=== PATIENT | female | born 1995 | race Caucasian/White ===

== ENCOUNTER 2022-04-19 14:37 | Outpatient (CLI) | payer BC, SELFPAY ==
[2022-04-19 18:01] LABS: HIV 1/2/P24 Combo Screen* Negative (Negative)
[2022-04-19 18:42] LABS: Chlamydia DNA Amplified* NOT DETECTED (No Detected); GC DNA Amplified* NOT DETECTED (No Detected)
[2022-04-19 20:20] LABS: Hepatitis B Surface Antigen* Negative (Negative)
[2022-04-19 20:38] LABS: Hepatitis C Virus Antibody* Negative (Negative)
[2022-04-21 23:56] LABS: Rapid Plasma Reagin (RPR) Non Reactive (Non Reactive)
[2022-04-22 00:58] LABS: Rubella Antibody IgG 54.7 IU/mL
== END 2022-04-19 14:38 | disposition home or self-care (01) ==
PROVIDERS: Advanced Practice Midwife; Visit Provider Advanced Practice Midwife
DX: Z34.91 Encounter for supervision of normal pregnancy, unspecified, first trimester (principal); Z83.49 Family history of other endocrine, nutritional and metabolic diseases
CPT/HCPCS: 76817; 84443; 86592; 86703; 86762; 86803; 86850; 86900; 86901; 87086; 87340; 87491; 87591

== ENCOUNTER 2022-07-15 07:45 | Outpatient (CLI) | payer BC, SELFPAY ==
--- OUTSIDE RECORDS SUMMARY | 2022-07-15 07:47 | XMS_ITS | Encounter Summary ---
:1995 Author Organization [facility] Address [address] [place] [address] Care Team Providers Name Role Phone Unavailable Primary Care Provider Unavailable Reason for Visit Outpatient (Routine) - Closed Specialty Diagnoses / Procedures Referred By Contact Refer red To Contact Hematology Diagnoses Family History Of Diseases Of The Blood And Blood Forming Organs And Certain Disorders Involving The Immune Mechanism Mike Kumar M.D. [facility] Procedures Hematology - Coagulation/Hemophilia eConsult [address] [place] [address] [phone] Referral ID Status Reason Start Date Expiration Date Visits Requ ested Visits Authorized [id number] Closed 05/26/2022 05/26/2023 1 1 Encounter Details Date Type Department Care Team Description 05/30/2022 Internal E-Consult Division of Hernandez Leach Family History Von Willebrand Disease (Primary Dx); Hematology elena Coreas M.D., M.S. Family History Of Diseases Of The Blood And Blood Forming Organs And Certain Disorders Involving The Immune Mechanism [place], [place] [address] [facility] [address] [place] [phone] Social History Tobacco Use Types Packs/Day Years Used Date Smoking Tobacco: Never Assessed Sex Assigned at Date Recorded Not on file documented as of this encounter Consult Notes Hernandez Leach M.D., M.S. - 05/30/2022 7:00 AM CDT SUBJECTIVE Ordering Physician: Mike H Stacy, M.D. The patient was not personally interviewed or examined. The history and examination findings are based on the clinical documentation provided and/or discussed with a physician or provider who had personally interviewed and examined the patient. Time spent: Five minutes or more of medical review. Chief Complaint / Reason for Visit A consult was placed regarding Lay Clancy, a 26 y.o. female. Clinical question to be answered: patient reports family history of bleeding disorder. unclear of a specific diagnosis. patient is currently (~13 weeks) History of Present Illness Ms. Clancy is a 26-year-old female with family history of possible bleeding disorder. Per clinical note, she has ???no personal history of a bleeding disorder?? . Additional details regarding her hemostatic history, including whether she has a personal history of epistaxis, gum bleeding, hemoptysis, he matemesis, melena, hematochezia, hematuria, menorrhagia, easy bruisability are unavailable/ unknown.In addition, her experience with surgical interventions or invasive procedures like wisdom teeth extraction or tonsillectomy, etc. are unknown. Ms. Clancy's mother, who has Freda's thyroiditis and celiac disease, per clinical note, was diagnosed with von Willebrand disease in an outside facility, although her von Willebrand panel from 2002here at [facility] was apparently within the normal reference range. Her brother has history of frequent nose bleeds and has been diagnosed with court a bleeding disorder?? after he underwent tonsillectomy at age 6. Additional details are unavailable. She has a maternal uncle who also has nonspecific bleeding issues. OBJECTIVE ASSESSMENT / PLAN #1 Family history of bleeding disorder (? von Willebrand disease) It would be important to obtain Ms. Clancy's detailed personal and family hemostatic history using the ISTH bleeding assessment tool (BAT; https://bleedingscore.certe.nl/), and obtain additional details regarding her mother's and brother's outside coagulation laboratory parameters. If Ms. Clancy's ISTH BAT score is 6 or more, that would be suggestive of an underlying systemic bleeding disorder, and then obtaining a comprehensive bleeding diathesis workup would be appropriate. If, however, her ISTH BAT is low, especially if she has undergone a number of hemostatic challenges in the past, the likelihood of an underlying systemic bleeding disorder would be low, and therefore the yield of laboratory workup for evaluation for an underlying bleeding diathesis would be low. I should mention that if Ms. Clancy has not undergone any invasive procedures in her life, having a low ISTH BAT score cannot entirely rule out underlying bleeding disorder. If additional questions arise, or if [id number] consultation is desired, please refer Ms. Clancy to the Hematology-Coagulation Clinic. documented in this encounter Plan of Treatment Not on filedocumented as of this encounter Visit Diagnoses Diagnosis Family History Von Willebrand Disease - Primary Family History Of Diseases Of The Blood And Blood Forming Organs And Certain Disorders Involving The Immune Mechanism documented in this encounter
--- OUTSIDE RECORDS SUMMARY | 2022-07-15 07:47 | XMS_ITS | Clinical Summary ---
:1995 Author Organization [facility] [place] [address] Care Team Providers Name Role Phone Angela Carpenter Primary Care Provider Allergies Active Allergy Reactions Severity Noted Date Comments Adhesive Tape Rash 07/08/2008 Patient states It like melts my skin. Medications Medication Sig Dispensed Refills Start Date End Date Status letrozole (Femara) 2.5 Take 1 Tablet (2.5 5 Tablet 3 12/28/19 22 Active mg tabletIndications: mg) by mouth once Oligo-ovulation with daily. amenorrhea Active Problems Problem Noted Date Generalized anxiety disorder 02/06/2012 Immunizations Name Administration Dates Next Due COVID-19 vaccine (Moderna 100mcg/0.5mL) 02/05/2021, 01/08/20 21 PF, MDV DTP 08/30/1996 DTP-HIB 1995, 1995, 1995 DTaP 04/26/2001 HIB PRP-T (ActHIB,Hiberix) 04/28/1999 Hepatitis B, Unspecified 1995, 1995, 1995 Human Papilloma Virus Vaccine 07/30/2008, 04/14/2008, 2007 Inactivated Polio Vaccine 04/26/2001 Influenza A (H1N1), Inactivated (Age >=3 07/30/2008 Years) MMR 04/26/2001 Oral Polio Vaccine 10/26/1996, 1995, 1995 Tdap 04/14/2008 Family History Medical History Relation Name Comments Allergies Mother Other Mother Hadley 'marc dx Relation Name Status Comments Mother Social History Tobacco Use Types Packs/Day Years Used Date Former Smoker Cigarettes 0.25 Smokeless Tobacco: Never Used Tobacco Cessation: Ready to Quit: Yes; C ounseling Given: Yes Comments: 3 cgs/day Alcohol Use Standard Drinks/Week Comments Not Asked 0 (1 standard drink = 0.6 oz pure alcoho l) Sex Assigned at Date Recorded Not on file Obstetrics History Para Term AB IAB SAB Ectopic Multiple Living Live Births 0 0 0 0 0 0 0 0 0 0 0 Last Filed Vital Signs Vital Sign Reading Time Taken Comments Blood Pressure 112/64 12/27/2021 2:22 PM CDT Pulse 80 12/27/2021 2:22 PM CDT Temperature 37.2 ??C (98.9 ??F) 09/09/2021 10:16 AM 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 Respiratory Rate 16 12/27/2021 2:22 PM CDT Oxygen Saturation 98% 12/27/2021 2:22 PM CDT Inhaled Oxygen Concentration - - Weight 94.7 kg (208 lb 12.8 oz) 12/27/2021 2:22 PM CDT Height 158.8 cm (5' 2.5) 04/12/2021 1:08 PM CDT Body Mass Index 37.58 04/12/2021 1:08 PM CDT Plan of Treatment Health Maintenance Due Date Last Done Comments Hepatitis C screening for age 18-79 2013 Tetanus booster 04/14/2018 04/14/2008 COVID-19 vaccine series (3 - Moderna 03/05/2021 02/05/2021, 01/07/2021 risk series) BMI (ht and wt on same day) for age 0804/12/2022 04/12/2021, 03/12/2018, 18+ 09/07/2017 Depression screening for age 12+ 04/12/2022 04/12/2021, , 09/07/2017 Influenza for age 9-49 04/28/2022 07/30/2008 Pap test for age 21-65 04/12/2024 04/12/2021, 03/12/2018 Tdap Completed 04/14/2008 Results Not on filefrom Last 3 Months Insurance Payer Benefit Plan / Subscriber ID Effective Dates Phone Addre ss Type Group BLUE CROSS BLUE CROSS OF [id number] 2021-Present [address] [address] [place] [phone] Lay Clancy Personal/Family Self 1995 [address] (Home) [place] [id number] Care Teams Extension Service Advisor Relationship Specialty Start Date End Date Angela Carpenter PA PCP - General Physician Operations Support Manager 06/26/[address] [place] [address]
--- OUTSIDE RECORDS SUMMARY | 2022-07-15 07:47 | XMS_ITS | Clinical Summary ---
:1995 Author Organization [facility] Address [address] [place] [address] Care Team Providers Name Role Phone Unavailable Primary Care Provider Unavailable Source Comments Patient records contain information from all sites at [facility]. For routine questions regarding patient records, call [phone] during business hours, M-F 8:00 AM - 5:00 PM Central Time. Record requests for emergency care only can be directed to [phone] at any time.[facility] Encounters Date Type Specialty Care Team Description 05/30/2022 Internal E-Consult Hematology Hernandez Leach Family History Von Willebrand Disease (Primary Dx); Elizabeth Coreas, M.S. Family History Of Diseases Of The Blood And Blood Forming Organs And Certain Disorders Involving The Immune Mechanism 05/10/2022 Comprehensive Visit Maternal and Fernanda Cosby , Counseling Genetic Procreative Management (Primary Dx); Medicine Chacha L, Family History Of Diseases Of The Blood And Blood Forming Organs And Certain Disorders Involving The Immune Mechanism C.N.M. Verenice Hayward M.S., [facility] 04/22/2022 Community Orders Fernanda Cosby, Family History Of Chacha L, Diseases Of The C.N.M. Blood And Blood Forming Organs And Certain Disorde rs Involving The Immune Mechanis m (Primary Dx) from Last 3 Months Immunizations Name Administration Dates Next Due 4vHPV (discontinued) 07/30/2008, 04/14/2008, 11/27/2007 DTP 08/30/1996 DTP / Hib 1995, 1995, 1995 DTaP (Infanrix, Tripedia) 04/26/2001 HepB, Unspecified 1995, 1995, 1995 IPV 04/26/2001 Influenza Laiv (Nasal) (Discontinued) 07/30/2008 MMR 04/26/2001 OPV 10/26/1996, 1995, 1995 Tdap 04/14/2008 Social History Tobacco Use Types Packs/Day Years Used Date Smoking Tobacco: Never Assessed Sex Assigned at Date Recorded Not on file Plan of Treatment Health Maintenance Due Date Last Done Comments Cervical Cancer Screening 1995 HIV Screening 1995 Hepatitis C Screening 1995 DTaP,Tdap,and Td Vaccines 04/14/2018 04/14/2008, 04/26/2001 , (7 - Td or Tdap) 08/30/1996, Additional history exists COVID-19 Vaccine (3 - 04/02/2021 02/05/2021, 01/07/2021 Booster for Moderna series) Depression Screening 08/28/2021 (Annual PHQ-2) Influenza Vaccine (#1) 2022 07/30/2008 Hepatitis B Vaccines Completed 1995, 1995, 1995 Pneumococcal vaccine (0-64 Aged Out No lo nger eligible years) based on patient 's age to complete this topic Insurance Payer Benefit Plan / Subscriber ID Effective Dates Phone Addre ss Type Group [facility] [id number] 2021-[place] [phone] [address] [address] PPO BLUE SHIELD [address] [place] [address]
--- OUTSIDE RECORDS SUMMARY | 2022-07-15 07:48 | XMS_ITS | Encounter Summary ---
:1995 Author Organization [facility] Address [address] [place] [address] Care Team Providers Name Role Phone Unavailable Primary Care Provider Unavailable Encounter Details Date Type Department Care Team Description 05/22/[address] [facility]ED[facility] Zayra Arredondo ROpal Social History Tobacco Use Types Packs/Day Years Used Date Smoking Tobacco: Never Assessed Sex Assigned at Date Recorded Not on file documented as of this encounter Plan of Treatment Not on filedocumented as of this encounter Visit Diagnoses Not on filedocumented in this encounter
--- OUTSIDE RECORDS SUMMARY | 2022-07-15 07:48 | XMS_ITS | Encounter Summary ---
:1995 Author Organization [facility] Address [address] [place] [address] Care Team Providers Name Role Phone Unavailable Primary Care Provider Unavailable Encounter Details Date Type Department Care Team Description 08/11/2002 Hospital Encounter HX NO MAPPING Provider, Historical Social History Tobacco Use Types Packs/Day Years Used Date Smoking Tobacco: Never Assessed Sex Assigned at Date Recorded Not on file documented as of this encounter Plan of Treatment Not on filedocumented as of this encounter Visit Diagnoses Not on filedocumented in this encounter
--- OUTSIDE RECORDS SUMMARY | 2022-07-15 07:48 | XMS_ITS | Encounter Summary ---
:1995 Author Organization [facility] Address [address] [place] [address] Care Team Providers Name Role Phone Unavailable Primary Care Provider Unavailable Encounter Details Date Type Department Care Team Description 09/14/2006 Hospital Encounter HX [facility] Art Kinney O.D. Social History Tobacco Use Types Packs/Day Years Used Date Smoking Tobacco: Never Assessed Sex Assigned at Date Recorded Not on file documented as of this encounter Progress Notes Art Abreu O.D. - 09/14/2006 11:00 AM CST [id number] CLINIC ENCOUNTER SLIT LAMP EXAM: Shows angles to be open. Corneas and lenses - No apparent pathology. Media clear both eyes. Bulbar and palpebral conjunctivae clear. Lids clear both eyes. INTERNAL: C/D = 0.25, 0.25. A/V = 3/4. FUNDUS: No apparent pathology. Macular reflex plus, both eyes. IMPRESSION: Myopia. PLAN: Manifest refraction was given to wear as needed for distance. She may take off for reading. Recheck in on year, sooner if problems. Art Abreu O.D. KMManolo/arlene cc: Source: [facility] Document Id: [id number] Electronically signed by Conversion, [facility] Business Support Specialist [id number] at 01/30/2017 6:53 AM CDT Conversion, Historical Provider Ser - 09/14/2006 11:00 AM CST [id number] Pain Questionnaire: Is your visit today because of Pain? NO C.C - HERE FOR 1ST EYE EXAM-REFERRED BY DR.DECH HESS - STATES SHE HAS TROUBLE SEEING THE BOARD AT SCHOOL. NO TROUBLE READNG NEAR. HAS BEEN GETTING HEADACHES ON THE TEMPORAL SIDES OF HER EYES. STATES HER RIGHT EYE HAS 'WAVES' IN FRONT OF IT FOR THE PAST FEW MONTHS WHICH COMES AND GOES. NO ITCHING, BURNING, MATTERING OR EXCESSIVE TEARING OR DRYNESS OFTHE EYES. HER MOTHER IS ALONG FOR VISIT.Karyn Mensah 09/14/2006 REVIEW OF SYSTEMS: Skin: negative. Eyes: negative. Ears/Nose/Throat: negative. Respiratory: negative. Cardiovascular: negative. Gastrointestinal: negative. Genitourinary: negative. Musculoskeletal: negative. Neurologic: HEADACHES. Psychiatric: negative. Hematologic/Lymphatic/Immunologic: negative. Endocrine: negative. MEDICATIONS: Current outpatient prescriptions Medication Sig NO ACTIVE MEDICATIONS . FAMILY HISTORY: No family history on file Source[facility] Document Id: [id number] Art Abreu O.D. - 09/14/2006 11:00 AM CST [id number] Lay Faye is here for an exam. ON EXAM: Near point convergence: to nose. Mobility: FROM. Pupils: PERRLA, MG and no afferent defect. Visual Field: Confrontation, WNL OD & OS. Induced Phorias: Distance: 2, exo. Near:8, exo. Vertical Phoria:ortho. Source: [facility] Document Id: [id number] Electronically signed by Conversion, [facility] Business Support Specialist [id number] at 01/30/2017 6:53 AM CDT documented in this encounter Plan of Treatment Not on filedocumented as of this encounter Visit Diagnoses Not on filedocumented in this encounter
--- OUTSIDE RECORDS SUMMARY | 2022-07-15 07:48 | XMS_ITS | Encounter Summary ---
:1995 Author Organization [facility] Address [address] [place] [address] Care Team Providers Name Role Phone Unavailable Primary Care Provider Unavailable Encounter Details Date Type Department Care Team Description 11/27/2007 Hospital Encounter HX [facility] PEDIATRIC Ra luz Burkett P.A.-C. [address] [place] [phone] (Wo rk) Social History Tobacco Use Types Packs/Day Years Used Date Smoking Tobacco: Never Assessed Sex Assigned at Date Recorded Not on file documented as of this encounter Progress Notes Rocio Burkett P.A.-C. - 11/27/2007 3:50 PM CDT [id number] SUBJECTIVE: Lay is a 12 year old female brought in by her mom today for left forearm pain that began 2 days ago after no apparent injury. She is unsure when her symptoms began, or what she was doing. They do notkeep her awake at night. She has not taken any medications for this. No other pain complaints of other extremities or joints. She is otherwise feeling well without fever or chills. OBJECTIVE: Weight 112 lbs 6.4 oz (51.0 kg). Lay is alert and cooperative. Left arm appears normal without deviation, discoloration, swelling. Good capillary refill in the nailbeds and radially and ulnar pulse full. She is nontender to any palpation. She has full ROM actively of elbow, wrist, and shoulder. Xray negative ASSESSMENT: Left forearm pain of unknown etiology PLAN: Supportive and symptomatic care only at this time. Continue to observe only and recheck if no improvement over next month. Source: [facility] RWMCHXTRANSXRTFSYS Document Id: [id number] Electronically signed by Conversion, [facility] Simplex Printer Installer [id number] at 01/30/2017 1:46 AM CDT documented in this encounter Plan of Treatment Not on filedocumented as of this encounter Visit Diagnoses Not on filedocumented in this encounter
--- OUTSIDE RECORDS SUMMARY | 2022-07-15 07:48 | XMS_ITS | Encounter Summary ---
:1995 Author Organization [facility] Address [address] [place] [address] Care Team Providers Name Role Phone Unavailable Primary Care Provider Unavailable Encounter Details Date Type Department Care Team Description 11/17/2008 Hospital Encounter HX [facility] PEDIATR[facility] Marvin Reid M.D. [address], [place] [address] (Wo rk) Social History Tobacco Use Types Packs/Day Years Used Date Smoking Tobacco: Never Assessed Sex Assigned at Date Recorded Not on file documented as of this encounter Progress Notes Marvin Reid M.D. - 11/17/2008 3:10 PM CDT [id number] Please scan [facility] sports PE form here. Source: [facility] UN[facility]XTRANSXRTFS[facility] Document Id: [id number] documented in this encounter Plan of Treatment Not on filedocumented as of this encounter Visit Diagnoses Not on filedocumented in this encounter
--- OUTSIDE RECORDS SUMMARY | 2022-07-15 07:48 | XMS_ITS | Encounter Summary ---
:1995 Author Organization [facility] Address [address] [place] [address] Care Team Providers Name Role Phone Unavailable Primary Care Provider Unavailable Encounter Details Date Type Department Care Team Description 09/07/2009 Hospital Encounter HX [facility] PED[facility] Dech, Marvin Elizabeth M.D. [address] [place], [place] [address] (Wo rk) Social History Tobacco Use Types Packs/Day Years Used Date Smoking Tobacco: Never Assessed Sex Assigned at Date Recorded Not on file documented as of this encounter Progress Notes Ayla Terry R.N. - 09/07/2009 10:50 AM CST [id number] Vision Screening Both Eyes: 20/50 Right Eye: 20/50 Left Eye: 20/50 Corrected: No Patient: Lay Faye Tested by: Ayla Terry Date: 09/07/2009 The Malaysian responses were used in this documentation with this patient. Yes = Response No = No response n/a = not applicable or not done Testing done on the Right ear - 20db HL Right Ear: 1000hz - yes 2000hz - yes 4000hz - yes 500hz - yes 25db HL Right Ear: 1000hz - n/a 2000hz - n/a 4000hz - n/a 500hz - n/a 40db HL Right Ear: 1000hz - n/a 2000hz - n/a 4000hz - n/a 500hz - n/a Testing done on the Left ear - 20db HL Left Ear: 1000hz - yes 2000hz - yes 4000hz - yes 500hz - yes 25db Left Ear: 1000hz - na 2000hz - n/a 4000hz - n/a 500hz - n/a 40db Left Ear: 1000hz - n/a 2000hz - n/a 4000hz - n/a 500hz - n/a Source: [facility] Document Id: [id number] Electronically signed by Conversion, [facility] Decorative Greens Cutter [id number] at 01/29/2017 7:10 AM CDT Marvin Reid M.D. - 09/07/2009 10:50 AM CST [id number] Please scan [facility] sports PE form here. Source: [facility] Document Id: [id number] Electronically signed by Conversion, [facility] Decorative Greens Cutter [id number] at 01/29/2017 7:10 AM CDT documented in this encounter Plan of Treatment Not on filedocumented as of this encounter Visit Diagnoses Not on filedocumented in this encounter
--- OUTSIDE RECORDS SUMMARY | 2022-07-15 07:48 | XMS_ITS | Encounter Summary ---
:1995 Author Organization [facility] Address [address] [place] [address] Care Team Providers Name Role Phone Unavailable Primary Care Provider Unavailable Encounter Details Date Type Department Care Team Description 04/17/2001 Hospital Encounter HX [facility] P[facility] Dech, Marvin Elizabeth M.D. [address] [place], [place] [address] (Wo rk) Social History Tobacco Use Types Packs/Day Years Used Date Smoking Tobacco: Never Assessed Sex Assigned at Date Recorded Not on file documented as of this encounter Progress Notes Conversion, Historical Provider Ser - 04/17/2001 11:10 AM CDT [id number] Lay Faye is a 5 year old male here for 5 year well child exam. He will be attending [employer] next fall.Brought in by mother. HISTORYCurrent Concerns: Mom has concerns r.e. speech. Is thuy ewhat inarticulate. This has been previously identified and she is receiving services through the [facility]. Mom also notes that she toe-walks alot. She was eval'ed at [facility] when she was 2, they felt at that time she would grow out of it. It has been improving.Diet: appropriate diet, do esn't like milk.Water Source: city water.Elimination: normal bowel movements, normal urination and potty trained.Sleep: sleeps through the nightDaycare: NoNoteworthy social stresses: noneHistory M odules Reviewed: YesThere is no problem list on file for this patient.DEVELOPMENTAL SCREEN: Keenan rivera Concerns about Development:[facility] screening (hearing/vision):Yes - passed both.SOCIAL Board games/takes turns:YesDresses independently: YesSeparates from parent: Yes FINE MOTORCopi es cross: YesCopies square: Yes 6 part person drawing: YesGROSS MOTORBalance 1 foot 5 sec: YesHop on each foot(5x): YesLANGUAGEUnderstandable speech: No, somewhat inartic ulate but appropriate vocabularyCount to 5/how many: YesColors: YesPHYSICAL EX AM: BP 88/50 Ht 3' 7.75 (1.11m) Wt 45 lbs (20.41 kg)Growth charts reviewed.General: Alert, i nteractive and appropriate, cooperative and no distressHead: NORMALEyes: NORMAL EOM (cover/uncover): NORMALEars: NORMALNose: NORMALMouth: ABNORMAL: Dental cariesNeck: NORMALResp: NORMALHeart: NORMALAbdomen: NORMALGenitalia: NORMAL femaleMusculoskeletal: NORMAL Gait: NORMALSkin: NORMALNeurological: NORMALLAB: No results found for this basename: HG B:1,URINEBLOOD:1,URINEPROTEIN:1,URINEG]EDUCATION/DISCUSSED: Bike helmet safetyDental visit. Risk Assessment Reviewed and Discussed:NoASSESSMENT/PLAN:Normal growth and development at 5 year old.Handout on age appropriate development/safety given.Immunizations reviewed, any previous advers e reactions discussed, and appropriate immunizations ordered after discussion. Mom is getting immuni zation records from [facility]. UA ordered if never done previously.Kindergarten school form comp leted.Return in 2-3 years.Continue to work with speech therapist at school.Normal lower extremity anatomy and range of motion. Toe-walking may be habitual. Consider PT referral for stretching exerc ises if persistent or problematic. Source: [facility] RWHXTRANSXSYS Document Id: [id number] documented in this encounter Plan of Treatment Not on filedocumented as of this encounter Visit Diagnoses Not on filedocumented in this encounter
--- OUTSIDE RECORDS SUMMARY | 2022-07-15 07:48 | XMS_ITS | Encounter Summary ---
:1995 Author Organization [facility] Address [address] [place] [address] Care Team Providers Name Role Phone Unavailable Primary Care Provider Unavailable Encounter Details Date Type Department Care Team Description 09/27/2006 Hospital Encounter HX [facility] Jennifer Hein R.N. [address] [place] [address] Social History Tobacco Use Types Packs/Day Years Used Date Smoking Tobacco: Never Assessed Sex Assigned at Date Recorded Not on file documented as of this encounter Miscellaneous Notes Telephone Encounter - Ann Hein R.N. - 09/27/2006 12:00 AM [employer] [id number] TELEPHONE TRIAGE ENCOUNTER FORM Date: 09/27/2006 PCP: Marvin Reid MD Patient Name: Lay Faye Gender: female : 1995 Age: [age] year old Time: 10:02 AM Phone Numbers: [phone] (home) Pharmacy: [facility] ([facility]) - [facility] ASSESSMENT Presenting Problem: bladder infection Subjective/objective: Has been having urinary frequency and pain since last evening. This morning isrunning low grade temp and now c/o stomach and back pain. Onset: sudden Duration: 1 days Associated Sx: low grade fevers. C/o stomach and back pain Problem list reviewed: YES Recent History: No. Recent Illness: No Allergies verified: YES Precipitated by: No Med list reviewed: YES Alleviated by: N/A Immunosuppressed:NO Conclusion / Primary Problem: UTI Protocol(s) Consulted: Per Nursing Judgement PLAN / INTERVENTION Disposition: Referred to clinic - within 24 hours Appointment today with PCP @ 1330 Caller verbalizes understanding of disposition? YES Caller agrees to plan? Yes EVALUATION / FOLLOW-UP Source[facility] Document Id: [id number] documented in this encounter Plan of Treatment Not on filedocumented as of this encounter Visit Diagnoses Not on filedocumented in this encounter
--- OUTSIDE RECORDS SUMMARY | 2022-07-15 07:48 | XMS_ITS | Encounter Summary ---
:1995 Author Organization [facility] Address [address] [place] [address] Care Team Providers Name Role Phone Unavailable Primary Care Provider Unavailable Reason for Referral Outpatient (Routine) - Closed Specialty Diagnoses / Procedures Referred By Contact Refer red To Contact Obstetrics and Diagnoses Family History Of Diseases Of The Blood And Blood Forming Organs And Certain Disorders Involving The Immune Mechanism Maddy Vasquez [facility] Gynecology Chacha Desai C.N.M. [address] [place] [address] Referral ID Status Reason Start Date Expiration Date Visits Requ ested Visits Authorized [id number] Closed 04/22/2022 04/22/2023 1 1 Encounter Details Date Type Department Care Team Description 04/22/2022 [facility] Fernanda Cosby, [facility] History Of AND CLINICS Chacha Desai C.N.M. Diseases Of The [address] [place] [address] [address] [facility] [place] [address] [place], [place] Forming Organs And [phone] Certain Disorders [phone] Involving The I mmune (Work) Mechanism (Primary [phone] Dx) (Fax) Social History Tobacco Use Types Packs/Day Years Used Date Smoking Tobacco: Never Assessed Sex Assigned at Date Recorded Not on file documented as of this encounter Plan of Treatment Scheduled Referrals Name Type Priority Associated Order Schedule Diagnoses Obstetrics Referral Outpatient Referral Routine Family History Of Expected: Diseases Of The 04/22/2022 Blood And Blood (Approximate ), Forming Organs And Expires: Certain Disorders 07/23/2023 Involving The Immune Mechanism documented as of this encounter Visit Diagnoses Diagnosis Family History Of Diseases Of The Blood And Blood Forming Organs And Certain Disorders Involving The Immune Mechanism - Primary documented in this encounter
--- OUTSIDE RECORDS SUMMARY | 2022-07-15 07:48 | XMS_ITS | Encounter Summary ---
:1995 Author Organization [facility] Address [address] [place] [address] Care Team Providers Name Role Phone Unavailable Primary Care Provider Unavailable Encounter Details Date Type Department Care Team Description 06/20/2003 Hospital Encounter HX [facility] PEDIATRIC Dech, Marvin Elizabeth M.D. [address] [place], [place] [address] (Wo rk) Social History Tobacco Use Types Packs/Day Years Used Date Smoking Tobacco: Never Assessed Sex Assigned at Date Recorded Not on file documented as of this encounter Progress Notes Conversion, Historical Provider Ser - 06/20/2003 8:50 AM CDT [id number] Lay Faye is a 8 year old female here for well child exam.Brought in by mother. Lives with fe membreno.HISTORYHealth Concerns: Has a wart on her right hand they would like removed.Her younger bro ther is being worked up for a possible bleeding disorder. Mom notes that Lay has always bruised ea sily. No mucosal bleeding, joint swelling.There is no problem list on file for this patient.Revie w of patient's past medical history indicates: OTITIS MEDIA NOS Comment: history ofCurrent prescriptions:NO ACTIVE MEDICATIONS .Review of the patient 's allergies finds: Adhesive Tape rash,skin peels off.N oteworthy social stressors: nonePHYSICAL EXAM BP 90/52 Ht 4' .75 (1.24m) Wt 59 lbs 8 oz (27. 0kg)VISUAL ACUITYR 20/25; L 20/25; Glasses: NoGeneral: Alert, interactive and appropriate, coope rative and no distressHead: Head normalEyes: Conj not injected. Bilat red reflex present. EOMs in tact, w/o strabismus. PERLVISUAL ACUITY - R: Normal; L: Normal Both: NormalEars: Ears normalHEARIN G SCREEN - R: Normal; L: NormalNose: Nares normalMouth: Oropharynx normalNeck: Supple without mass es. Thyroid normalResp: Breathing not labored. Chest clear to auscultation.Heart: Reg rate and rhyt hm. NL S1 S2. No murmurs. Fem pulses full and symmAbdomen: Soft, nontender. Normal bow el sounds. No hepatosplenomegaly or abnormal massesLymph: No lymphadenopathy.Genitalia: .sex genit jose manuel Normal external female genitaliaMusculoskeletal: Spine straight w/o scoliosis. NL and symmetric strength and tone. Hips NL.Skin: No rashes, induration, or cyanosis.Neurological: Appropriate for ageImmunization History: DPT 08/30/1996 DTaP 04/26/2001 Hepatitis B [birth year] IPV 04/26/2001 MMR 04/26/2001 OPV 1995 1995 10/26/1996 Te tramune (DtP/HIB) 1995 [birth year] Immunizations up to date: YesIf no, list g iven.CBC, INR, PTT normalPLAN:1. Education/Discussed: Food groups SnacksSeatbelt safetyGuns Dental visitSunscreen.2. RTC 10 years of age3. Dental referral (CAT) 4. No evidence of a bleedi ng disorder. Source: [facility] Document Id: [id number] documented in this encounter Plan of Treatment Not on filedocumented as of this encounter Visit Diagnoses Not on filedocumented in this encounter
--- OUTSIDE RECORDS SUMMARY | 2022-07-15 07:48 | XMS_ITS | Encounter Summary ---
:1995 Author Organization [facility] Address [address] [place] [address] Care Team Providers Name Role Phone Unavailable Primary Care Provider Unavailable Encounter Details Date Type Department Care Team Description 07/12/2006 Hospital Encounter HX [facility] PEDIATRIC Marvin Reid M.D. [address] [place], [place] [address] (Wo rk) Social History Tobacco Use Types Packs/Day Years Used Date Smoking Tobacco: Never Assessed Sex Assigned at Date Recorded Not on file documented as of this encounter Progress Notes Conversion, Historical Provider Ser - 07/12/2006 3:10 PM CST [id number] This child qualifies for vaccination through the [place] program because she (choose only one box in descending order):is enrolled in a [facility] Program: - [place] Medical Assitance (MA) Source: [facility] Document Id: [id number] Marvin Reid M.D. - 07/12/2006 3:10 PM CST [id number] Lay Faye is a 11 year old female here for well child exam. Brought in by mother. Lives with mother. HISTORY Health Concerns: Fever, malaise, congestion for 2 days. There is no problem list on file for this patient. Past Medical History Diagnosis Date OTITIS MEDIA NOS history of Current outpatient prescriptions Medication Sig AMOXICILLIN 400 MG/5ML OR SUSR 10cc PO BID x 10 days NO ACTIVE MEDICATIONS . Allergies Allergen Reactions Adhesive Tape rash,skin peels off. Noteworthy social stressors: none PHYSICAL EXAM CAT Physical: Yes BP 115/68 Pulse 112 Temp (Src) 100.3 (Tympanic) Ht 4' 7 (1.40m) Wt 100 lbs 4.8 oz (45.5kg) VISUAL ACUITY R 20/40; L 20/50; Glasses: No General: Alert, interactive and appropriate, cooperative and no distress Head: Head normal Eyes: Conj not injected. Bilat red reflex present. EOMs intact, w/o strabismus. [facility] VISUAL ACUITY - R: Normal; L: Normal Both: Normal Ears: R TM - erythematous and bulging, L TM - normal HEARING SCREEN - R: Abnormal - some misses.; L: Normal Nose: Nares normal Mouth: Oropharynx normal Neck: Supple without masses. Thyroid normal Resp: Breathing not labored. Chest clear to auscultation. Heart: Reg rate and rhythm. NL S1 & S2. No murmurs. Fem pulses full and symm Abdomen: Soft, nontender. Normal bowel sounds. No hepatosplenomegaly or abnormal masses Lymph: No lymphadenopathy. Genitalia: deferred Musculoskeletal: Spine straight w/o scoliosis. NL and symmetric strength and tone. Hips NL. Skin: No rashes, induration, or cyanosis. Neurological: Appropriate for age Immunization History Name Date(s) Administered DPT 08/30/1996 DTAP (<7y) 04/26/2001 Hepatitis B 1995, 1995, 1995 IPV 04/26/2001 MMR 04/26/2001 OPV 1995, 1995, 10/26/1996 Tetramune (DtP/HIB) 1995, 1995, 1995 Immunizations up to date: Yes If no, list given. PLAN: 1. Education/Discussed: Food groups Fire safety/matches Seatbelt safety Dental visit Sunscreen 2. RTC 13 years of age 3. Dental referral (CAT) 4 ROM rx amox per orders. Source: [facility] RWMCHXTRANSXRTFSYS Document Id: [id number] Electronically signed by Conversion, [facility] Web Merchant [id number] at 01/30/2017 4:20 PM CDT documented in this encounter Plan of Treatment Not on filedocumented as of this encounter Visit Diagnoses Not on filedocumented in this encounter
--- OUTSIDE RECORDS SUMMARY | 2022-07-15 07:48 | XMS_ITS | Encounter Summary ---
:1995 Author Organization [facility] Address [address] [place] [address] Care Team Providers Name Role Phone Unavailable Primary Care Provider Unavailable Encounter Details Date Type Department Care Team Description 10/30/2003 Hospital Encounter HX NO MAPPING Provider, Historical Social History Tobacco Use Types Packs/Day Years Used Date Smoking Tobacco: Never Assessed Sex Assigned at Date Recorded Not on file documented as of this encounter Progress Notes Conversion, Historical Provider Ser - 10/30/2003 6:15 PM CST [id number] SUBJECTIVE:Lay is an 8-year-old female who presents with mother complaining of sore throat x 1 day . Positive headache, positive low-grade fever. Positive vomiting once today. OBJECTIVE:General: We ll-developed, well-nourished child in no acute distress.Ears: TM intact and normal bilaterally.Nose : Normal.Throat: Mucosa with moderate erythema. Tonsillar hypertrophy 1+ bilaterally. White exudates present. Neck: Supple. No lymphadenopathy. CV: S1, S2, RRR, no murmurs, rubs, or gallops. Respira tory Exam: Clear to auscultation bilaterally. Normal respiratory effort. LABORATORY/X-RAY RESULTS: Rapid strep test is positive.ASSESSMENT:Strep throat.PLAN:Treatment with penicillin VK, 250 mg /5 ml suspension 1 tsp PO three times a day x 10 days. Stay well hydrated. 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 Return for office visit if symptoms worsen or moira l to improve. Andria Salgado PA-C/carmellaD: 10/30/2003T: 10/31/2003 Source: [facility] Document Id: [id number] documented in this encounter Plan of Treatment Not on filedocumented as of this encounter Visit Diagnoses Not on filedocumented in this encounter
--- OUTSIDE RECORDS SUMMARY | 2022-07-15 07:48 | XMS_ITS | Encounter Summary ---
:1995 Author Organization [facility] Address [address] [place] [address] Care Team Providers Name Role Phone Unavailable Primary Care Provider Unavailable Encounter Details Date Type Department Care Team Description 11/12/2002 Hospital Encounter HX [facility]EDIATRIC Dech, Marvin Elizabeth M.D. [address] [place], [place] [address] (Wo rk) Social History Tobacco Use Types Packs/Day Years Used Date Smoking Tobacco: Never Assessed Sex Assigned at Date Recorded Not on file documented as of this encounter Progress Notes Conversion, Historical Provider Ser - 11/12/2002 10:50 AM CST [id number] Pt is a 7 year old female brought by mother who presents with concerns about possible conjunctivitis. There has been 5days of bilateral conjunctival injection and clear discharge. There is no pain, ph otophobia, blurriness or diplopia. Additional symptoms include none. Three sibs with similar sx. M om has been using polytrim without improvement.Obj: Temp 97.1 Temp Src: Tympanic Wt 53 lbs 9 o z (24.296 kg)Gen: WDWN, alert, NADHead: Normocephalic, atraumaticEyes: EOMI, PERRLA, bilateral conjunctival injection with clear discharge notedEars: TM's clear bilaterallyNose: normalMouth: MMM without lesionsPharynx: Not inflamed, no exudateNeck: suppleLungs: clearHeart: Regular ra te and rhythm without murmers.Impression: Acute bilateral conjunctivitisPlan: Sulfacetamide oint ment to affected eye(s) TID until clear.Frequent handwashing, try not to touch eyes.Return if sympt oms worsen or persist beyond 7 days. Source: [facility] RWHXTRANSXSYS Document Id: [id number] documented in this encounter Plan of Treatment Not on filedocumented as of this encounter Visit Diagnoses Not on filedocumented in this encounter
--- OUTSIDE RECORDS SUMMARY | 2022-07-15 07:48 | XMS_ITS | Encounter Summary ---
:1995 Author Organization [facility] Address [address] [place] [address] Care Team Providers Name Role Phone Unavailable Primary Care Provider Unavailable Encounter Details Date Type Department Care Team Description 12/23/2004 Hospital Encounter [facility] Marvin Reid M.D. [address] [place], [place] [address] (Wo rk) Social History Tobacco Use Types Packs/Day Years Used Date Smoking Tobacco: Never Assessed Sex Assigned at Date Recorded Not on file documented as of this encounter Progress Notes Marvin Reid M.D. - 12/23/2004 10:30 AM CDT [id number] SUBJECTIVE: Lay Faye is an 9 year old female who presents for evaluation and treatment of sore throat. Symptoms include congestion, sore throat and fever. Onset 6 days, stable since that time. Known Strep exposure: none. 1. NO ACTIVE MEDICATIONS Route: Sig:. Dispense: 0 Refill: 0 Adhesive Tape Comment: rash,skin peels off. Tobacco Use: Not on file Comment: no second hand smoke Alcohol Use: Not on file OBJECTIVE: Temp (Src) 98.7 (Tympanic) Wt 66 lbs 6.0 oz (30.1kg) General appearance: healthy, alert, no distress and cooperative Ears: R TM - normal: no effusions, no erythema, and normal landmarks, L TM - normal: no effusions, no erythema, and normal landmarks Nose: mild audible congestion Oropharynx: mild erythema Neck: normal, supple and moderate anterior cervical adenopathy bilaterally Lungs: normal and clear to auscultation Heart: regular rate and rhythm and no murmurs, clicks, or gallops ASSESSMENT: Acute pharyngitis - r/o Strep RSS negative Dx: Non-strep pharyngitis Rx: 1) Symptomatic treatment with fluids, vaporizer, acetaminophen. 2) Recheck as needed for persistence, worsening, appearance of new symptoms. 3) Culture pending. PLAN: Discussed possible etiologies of symptoms and need for antibiotic treatment if Strep found. Source: [facility] RWMCHXTRANSXRTFSYS Document Id: [id number] Electronically signed by Conversion, [facility] Critical Care Clinical Nurse Specialist [id number] at 01/30/2017 9:02 PM CDT documented in this encounter Plan of Treatment Not on filedocumented as of this encounter Visit Diagnoses Not on filedocumented in this encounter
--- OUTSIDE RECORDS SUMMARY | 2022-07-15 07:48 | XMS_ITS | Encounter Summary ---
:1995 Author Organization [facility] Address [address] [place] [address] Care Team Providers Name Role Phone Unavailable Primary Care Provider Unavailable Encounter Details Date Type Department Care Team Description 04/17/2001 Hospital Encounter HX [facility] PED[facility] Major De Luna ea, L.P.N. [address] [place] [address] Social History Tobacco Use Types Packs/Day Years Used Date Smoking Tobacco: Never Assessed Sex Assigned at Date Recorded Not on file documented as of this encounter Plan of Treatment Not on filedocumented as of this encounter Visit Diagnoses Not on filedocumented in this encounter
--- OUTSIDE RECORDS SUMMARY | 2022-07-15 07:48 | XMS_ITS | Encounter Summary ---
:1995 Author Organization [facility] Address [address] [place] [address] Care Team Providers Name Role Phone Unavailable Primary Care Provider Unavailable Encounter Details Date Type Department Care Team Description 12/23/2020 Orders Only [facility] Sa mike Le M.D. [address] [place] [phone] (Wo rk) Social History Tobacco Use Types Packs/Day Years Used Date Smoking Tobacco: Never Assessed Sex Assigned at Date Recorded Not on file documented as of this encounter Plan of Treatment Not on filedocumented as of this encounter Visit Diagnoses Not on filedocumented in this encounter
--- OUTSIDE RECORDS SUMMARY | 2022-07-15 07:48 | XMS_ITS | Encounter Summary ---
:1995 Author Organization [facility] Address [address] [place] [address] Care Team Providers Name Role Phone Unavailable Primary Care Provider Unavailable Encounter Details Date Type Department Care Team Description 09/27/2006 Hospital Encounter [facility] Marvin Reid M.D. [address] [place], [place] [address] (Wo rk) Social History Tobacco Use Types Packs/Day Years Used Date Smoking Tobacco: Never Assessed Sex Assigned at Date Recorded Not on file documented as of this encounter Progress Notes Marvin Reid M.D. - 09/27/2006 1:30 PM CST [id number] CLINIC ENCOUNTER SUBJECTIVE: Lay is an 11-year-old who was well until yesterday when she began to develop dysuria, frequency and urgency. She has also had some lower abdominal pain. She has been afebrile. She has no history of urinary tract infections. OBJECTIVE: She is well developed, well nourished, alert, in no acute distress. HEENT EXAM is not performed. Neck is supple. Lungs are clear. She has a normal S1, S2 with a regular rate and rhythm, no murmurs. There is no CVA tenderness. She has normal bowel sounds. Abdomen is soft, nontender, nondistended, without hepatosplenomegaly or masses. Urinalysis with specific gravity greater than 1.030, pH 7.5, greater than 300 protein. Nitrate and leukocyte esterase are negative. There are 0 to 2 WBCs per high-powered field, 5 to 10 RBCs per high-powered field. Urine culture is pending. IMPRESSION: Dysuria, rule out urinary tract infection. PLAN: Will treat with Bactrim per orders while urine culture is pending. Push fluids. Symptomatic cares. Follow up p.r.n. I will notify mom once urine culture results are done. Elizabeth Roldan/arlene cc: Source: [facility] Document Id: [id number] Electronically signed by Conversion, [facility] Proced Tech [id number] at 01/30/2017 6:53 AM CDT Marvin Reid M.D. - 09/27/2006 1:30 PM CST [id number] This office note has been dictated. Source: [facility] Document Id: [id number] Electronically signed by Conversion, [facility] Proced Tech [id number] at 01/30/2017 6:53 AM CDT documented in this encounter Plan of Treatment Not on filedocumented as of this encounter Visit Diagnoses Not on filedocumented in this encounter
--- OUTSIDE RECORDS SUMMARY | 2022-07-15 07:48 | XMS_ITS | Encounter Summary ---
:1995 Author Organization [facility] Address [address] [place] [address] Care Team Providers Name Role Phone Unavailable Primary Care Provider Unavailable Encounter Details Date Type Department Care Team Description 07/25/2008 Hospital Encounter HX [facility] PEDIAT[facility] Dech, Marvin Elizabeth M.D. [address] [place], [place] [address] (Wo rk) Social History Tobacco Use Types Packs/Day Years Used Date Smoking Tobacco: Never Assessed Sex Assigned at Date Recorded Not on file documented as of this encounter Miscellaneous Notes Miscellaneous - Becka Ortiz R.N. - 07/25/2008 12:00 AM CST [id number] July 25, 2008 Lay Faye [address] [place] [phone] Dear Ms. Faye, It has come to our attention while reviewing your records, that you are in need of completing your HPV (Human Papillomavirus ) immunization series. The HPV vaccine is given as a 3 - dose series. After receiving your 1st dose the 2nd dose is given - 2 months after 1st dose, 3rd dose - 6 months after the 1 st dose. You are missing your 3rd and final HPV immunization. Please call us at [phone] to make a Nurse Only Visit appointment and we can assist you with completing this series. This is important for your continued health. The [facility] can schedule your visit between 8:30 AM and 4 PM Monday thru Monday. Thank you. Primary Care Department Source: [facility] Document Id: [id number] Electronically signed by Conversion, [facility] Senior Architect/Design Manager [id number] at 01/30/2017 1:00 AM CDT documented in this encounter Plan of Treatment Not on filedocumented as of this encounter Visit Diagnoses Not on filedocumented in this encounter
--- OUTSIDE RECORDS SUMMARY | 2022-07-15 07:48 | XMS_ITS | Encounter Summary ---
:1995 Author Organization [facility] Address [address] [place] [address] Care Team Providers Name Role Phone Unavailable Primary Care Provider Unavailable Encounter Details Date Type Department Care Team Description 08/11/2002 Hospital Encounter HX NO MAPPING Raheel Rosado M.D. [address] [place], [place] [phone] (Wo rk) Social History Tobacco Use Types Packs/Day Years Used Date Smoking Tobacco: Never Assessed Sex Assigned at Date Recorded Not on file documented as of this encounter Plan of Treatment Not on filedocumented as of this encounter Visit Diagnoses Not on filedocumented in this encounter
--- OUTSIDE RECORDS SUMMARY | 2022-07-15 07:48 | XMS_ITS | Encounter Summary ---
:1995 Author Organization [facility] Address [address] [place] [address] Care Team Providers Name Role Phone Unavailable Primary Care Provider Unavailable Encounter Details Date Type Department Care Team Description 06/03/2010 Hospital Encounter HX [facility]EDI[facility] Dec, Marvin Elizabeth M.D. [address] [place], [place] [address] (Wo rk) Social History Tobacco Use Types Packs/Day Years Used Date Smoking Tobacco: Never Assessed Sex Assigned at Date Recorded Not on file documented as of this encounter Plan of Treatment Not on filedocumented as of this encounter Visit Diagnoses Not on filedocumented in this encounter
--- OUTSIDE RECORDS SUMMARY | 2022-07-15 07:48 | XMS_ITS | Encounter Summary ---
:1995 Author Organization [facility] Address [address] [place] [address] Care Team Providers Name Role Phone Unavailable Primary Care Provider Unavailable Encounter Details Date Type Department Care Team Description 03/29/2002 Hospital Encounter HX NO MAPPING Provider, Historical Social History Tobacco Use Types Packs/Day Years Used Date Smoking Tobacco: Never Assessed Sex Assigned at Date Recorded Not on file documented as of this encounter Plan of Treatment Not on filedocumented as of this encounter Visit Diagnoses Not on filedocumented in this encounter
--- OUTSIDE RECORDS SUMMARY | 2022-07-15 07:48 | XMS_ITS | Encounter Summary ---
:1995 Author Organization [facility] Address [address] [place] [address] Care Team Providers Name Role Phone Unavailable Primary Care Provider Unavailable Encounter Details Date Type Department Care Team Description 12/14/2004 Hospital Encounter HX NO MAPPING Provider, Historical Social History Tobacco Use Types Packs/Day Years Used Date Smoking Tobacco: Never Assessed Sex Assigned at Date Recorded Not on file documented as of this encounter Plan of Treatment Not on filedocumented as of this encounter Visit Diagnoses Not on filedocumented in this encounter
--- OUTSIDE RECORDS SUMMARY | 2022-07-15 07:48 | XMS_ITS | Encounter Summary ---
:1995 Author Organization [facility] Address [address] [place] [address] Care Team Providers Name Role Phone Unavailable Primary Care Provider Unavailable Encounter Details Date Type Department Care Team Description 04/26/2001 Hospital Encounter [facility]X [facility]IC Provider, Mihcael العلي Social History Tobacco Use Types Packs/Day Years Used Date Smoking Tobacco: Never Assessed Sex Assigned at Date Recorded Not on file documented as of this encounter Plan of Treatment Not on filedocumented as of this encounter Visit Diagnoses Not on filedocumented in this encounter
--- OUTSIDE RECORDS SUMMARY | 2022-07-15 07:48 | XMS_ITS | Encounter Summary ---
:[address] [facility] Address [address] [place] [address] Care Team Providers Name Role Phone Unavailable Primary Care Provider Unavailable Encounter Details Date Type Department Care Team Description 07/04/2001 Hospital Encounter HX [facility] PEDIATRIC Margarito Bruno R.NPromise [address] [place] [phone] Social History Tobacco Use Types Packs/Day Years Used Date Smoking Tobacco: Never Assessed Sex Assigned at Date Recorded Not on file documented as of this encounter Miscellaneous Notes Telephone Encounter - Conversion, Historical Provider Ser - 07/04/2001 12:00 AM CST [id number] Addended by: SABINA BRUNO on: 07/04/2001,11:22 AMModules accepted: [facility] MonJul 04, 2001 10:37 AMCalled mom. Explained that this formulation remains active for severa l days after application. Can retreat every 7-10 days prn. She will call next monday if she is sti ll seeing live lice at that time.SABINA BRUNO MonJul 04, 2001 10:26 AMCALL RECEIVED. Contact: Laura: [phone] child and her three siblings were treated yesterday for lice. [facility] c [facility]. Today they still have live lice. Mom would like another refill. Please c all to [facility]. [facility] is now out of NIX. Source: [facility] Document Id: [id number] documented in this encounter Plan of Treatment Not on filedocumented as of this encounter Visit Diagnoses Not on filedocumented in this encounter
--- OUTSIDE RECORDS SUMMARY | 2022-07-15 07:48 | XMS_ITS | Encounter Summary ---
:1995 Author Organization [facility] Address [address] [place] [address] Care Team Providers Name Role Phone Unavailable Primary Care Provider Unavailable Encounter Details Date Type Department Care Team Description 04/26/2001 Hospital Encounter HX [facility]ED[facility] Margarito Kohli R.NPromise [address] [place] [phone] Social History Tobacco Use Types Packs/Day Years Used Date Smoking Tobacco: Never Assessed Sex Assigned at Date Recorded Not on file documented as of this encounter Plan of Treatment Not on filedocumented as of this encounter Visit Diagnoses Not on filedocumented in this encounter
--- OUTSIDE RECORDS SUMMARY | 2022-07-15 07:48 | XMS_ITS | Encounter Summary ---
:1995 Author Organization [facility] Address [address] [place] [address] Care Team Providers Name Role Phone Unavailable Primary Care Provider Unavailable Reason for Visit Reason Onset Date Comments Outpatient COVID-19 Testing 07/16/2020 Encounter Details Date Type Department Care Team Description 07/16/2020 External Outreach Department of [facility] Elina Mcgill Infection [facility] Medicine, Perry Odell Strickland Respiratory (Primary Clinic, in [facility] [address]) [place], [place] [address] [address] [place], [place] [phone] (Work) [phone] Social History Tobacco Use Types Packs/Day Years Used Date Smoking Tobacco: Never Assessed Sex Assigned at Date Recorded Not on file documented as of this encounter Progress Notes Natalie Dodd, LPromiseP.N. - 07/16/2020 1:15 PM CST Encounter created for the drive-through COVID-19 testing. NEONATAL documented in this encounter Plan of Treatment Not on filedocumented as of this encounter Procedures Procedure Name Priority Date/Time Associated Diagnosis Comme nts SARS CORONAVIRUS-2 Routine 07/16/2020 1:49 PM Infection Upper Results for this RNA, V RN NEONATAL Respiratory procedure are i n the results section. documented in this encounter Results SARS Coronavirus-2 RNA, V Symptomatic (07/16/2020 1:49 PM RN NEONATAL) [facility] Method Time Signature SARS-CoV-2 Swab, 07/17/2020 ECLR Specimen Nasopharynx 1:25 PM RN NEONATAL Source SARS CoV-2 Undetected Undetected 07/17/2020 ECLR RNA, TMA 1:25 PM RN NEONATAL Comment: SARS-CoV-2 RNA absent. This result does not rule out COVID-19 in the patient, as the sensitivity of the test depends o n the timing of the specimen collection and the quality of the specim en. Result should be correlated with patient's history and clinical presentat ion. ----ADDITIONAL INFORMATION---- This test is performed using the Aptima SARS-CoV-2 assay ([employer] which has received Emergency Use Authori zation (EUA) by the U.S. Food and Drug Administration. Fact sheets for this Emergency Use Autho rization (EUA) assay can be found at the following links: For Healthcare Providers: https://www.fd a.gov/media/355470/download For Patients: https://www.fda.gov/media/ 054414/download Specimen Anatomical Collection Method Collection Time Receive d Time (Source) Location / / Volume Laterality Varies 07/16/2020 1:49 PM 0 9:59 (Nasopharynx) RN NEONATAL PM RN NEONATAL José Miguel Mcgill P.A.-C. LAB MICROBIOLOGY - GENERAL O RDERABLES Performing Organization Address City/State/ZIP Code Phon e Number [facility]- [address] [place] [address] [phone] [facility] [place] [address] [address] documented in this encounter Visit Diagnoses Diagnosis Infection Upper Respiratory - Primary documented in this encounter Additional Health Concerns Infection Onset Date Last Indicated Resolved Time COVID19 Pending 07/16/2020 07/16/2020 07/17/2020 1:26 PM RN NEONATAL documented as of this encounter
--- OUTSIDE RECORDS SUMMARY | 2022-07-15 07:48 | XMS_ITS | Encounter Summary ---
:1995 Author Organization [facility] Address [address] [place] [address] Care Team Providers Name Role Phone Unavailable Primary Care Provider Unavailable Encounter Details Date Type Department Care Team Description 05/22/2001 Hospital Encounter HX [facility] Dech, Marvin Elizabeth M.D. [address] [place], [place] [address] (Wo rk) Social History Tobacco Use Types Packs/Day Years Used Date Smoking Tobacco: Never Assessed Sex Assigned at Date Recorded Not on file documented as of this encounter Progress Notes Conversion, Historical Provider Ser - 05/22/2001 1:30 PM CDT [id number] NAME: Lay Faye AGE: 55 year old SEX: femalePROCEDURE: Dental lutheran under anes thesia DATE: 05/23/01 [facility]. #PRESENT MEDICAL STATUS:BP 78/44 Pulse 78 Temp 99. 5 Ht 3' 8 (1.12m) Wt 47 lbs (21.32 kg)Significant dental caries, occ. pain.PRESENT HISTORY:C urrent prescriptions:NO ACTIVE MEDICATIONS, ., D: 0, R: 0Adhesive TapePAST HISTORY:@[email or web address]@The re is no previous medical history on file.FAMILY HISTORY:@[email or web address]@GENERAL APPEARANCE: WDWN alert NADHead:NCATEyes:eomi perrla conj. noninj.Ears:tm's clearNose:no rhinorrheaMouth/Teeth:several s evere cariesThroat:noninflamedNeck:supple no LAChest/Lungs:ckearHeart/Vascular:RRR no murmerAbdo men: nl. BS soft NTND no HSM no massesGenitalia:nlSkeletal:no deformitiesLymphoid:no LASkin:no ra shNeuromuscular:nonfocalPHYSICAL EXAM:@[email or web address]@ @[facility]@ Other: Chest X- ray:EKG (or photo copy):Impression:Dental cariesOther comments:This patient has been examined by me this day and sanchez s been found to be an acceptable candidate for surgery with apppropriate anesthesia.Marvin Reid Office Number: [phone] Source: [facility] RWHXTRANSXSYS Document Id: [id number] documented in this encounter Plan of Treatment Not on filedocumented as of this encounter Visit Diagnoses Not on filedocumented in this encounter
--- OUTSIDE RECORDS SUMMARY | 2022-07-15 07:48 | XMS_ITS | Encounter Summary ---
:1995 Author Organization [facility] Address [address] [place] [address] Care Team Providers Name Role Phone Unavailable Primary Care Provider Unavailable Encounter Details Date Type Department Care Team Description 04/14/2008 Hospital Encounter HX [facility] PEDIATRIC Provider, Michael العلي Social History Tobacco Use Types Packs/Day Years Used Date Smoking Tobacco: Never Assessed Sex Assigned at Date Recorded Not on file documented as of this encounter Plan of Treatment Not on filedocumented as of this encounter Visit Diagnoses Not on filedocumented in this encounter
--- OUTSIDE RECORDS SUMMARY | 2022-07-15 07:48 | XMS_ITS | Encounter Summary ---
:1995 Author Organization [facility] Address [address] [place] [address] Care Team Providers Name Role Phone Unavailable Primary Care Provider Unavailable Encounter Details Date Type Department Care Team Description 07/30/2008 Hospital Encounter HX [facility] PED[facility] Provider, Michael العلي Social History Tobacco Use Types Packs/Day Years Used Date Smoking Tobacco: Never Assessed Sex Assigned at Date Recorded Not on file documented as of this encounter Progress Notes Conversion, Historical Provider Ser - 07/30/2008 4:15 PM CST [id number] Lay Faye is a 13 year old female. Patient received: FLUMIST NASAL INHALATION Patient Questionaire: I am between ages 2-49 years? YES I have a fever or feel ill today? No I have an allergy to eggs? No I have had a reaction to the flu vaccine the past? No I have had Guillain-Unity syndrome? No I have had a [place] health problem such as heart, lung, kidney or metabolic disease such as diabetes, asthma, anemia or other blood disorders? I am now or could become in the next month? No I have had a recent bone marrow transplant or live with someone who has? No VIS information given This child qualifies for vaccination through the [place] program because she (choose only one box in descending order):is enrolled in a [facility] Care Program: - [facility] ([facility]) Source: [facility] Document Id: [id number] documented in this encounter Plan of Treatment Not on filedocumented as of this encounter Visit Diagnoses Not on filedocumented in this encounter
--- OUTSIDE RECORDS SUMMARY | 2022-07-15 07:48 | XMS_ITS | Encounter Summary ---
:1995 Author Organization [facility] Address [address] [place] [address] Care Team Providers Name Role Phone Unavailable Primary Care Provider Unavailable Encounter Details Date Type Department Care Team Description 07/16/2020 Admin Visit Department of Family Medicine, [facility] [place] in [place], [place] [address] [place] [phone] Social History Tobacco Use Types Packs/Day Years Used Date Smoking Tobacco: Never Assessed Sex Assigned at Date Recorded Not on file documented as of this encounter Plan of Treatment Not on filedocumented as of this encounter Visit Diagnoses Not on filedocumented in this encounter Additional Health Concerns Infection Onset Date Last Indicated Resolved Time COVID19 Pending 07/16/2020 07/16/2020 07/17/2020 1:26 PM ACTUARIAL INTERN documented as of this encounter
--- OUTSIDE RECORDS SUMMARY | 2022-07-15 07:48 | XMS_ITS | Encounter Summary ---
:1995 Author Organization [facility] Address [address] [place] [address] Care Team Providers Name Role Phone Unavailable Primary Care Provider Unavailable Reason for Referral Outpatient (Routine) - Closed Specialty Diagnoses / Procedures Referred By Contact Refer red To Contact Hematology Diagnoses Family History Of Diseases Of The Blood And Blood Forming Organs And Certain Disorders Involving The Immune Mechanism Mike Kumar M.D. [facility] Procedures Hematology - Coagulation/Hemophilia eConsult [address] [place] [phone] Referral ID Status Reason Start Date Expiration Date Visits Requ ested Visits Authorized [id number] Closed 05/26/2022 05/26/2023 1 1 Reason for Visit Outpatient (Routine) - Closed Specialty Diagnoses / Procedures Referred By Contact Refer red To Contact Obstetrics and Diagnoses Family History Of Diseases Of The Blood And Blood Forming Organs And Certain Disorders Involving The Immune Mechanism Maddy Vasquez [facility] Gynecology Chacha Desai C.N.MPromise [address] [place] [address] Referral ID Status Reason Start Date Expiration Date Visits Requ ested Visits Authorized [id number] Closed 04/22/2022 04/22/2023 1 1 Encounter Details Date Type Department Care Team Description 05/10/2022 Comprehensive Visit Department of Chacha Brantley, C.N.MPromise [address] [place] [address] Counseling Genetic Procreative Managemen t (Primary Dx); Obstetrics and Verenice Hayward M.S., [employer] [facility] [employer] [address] [place] [phone] Family History Of Diseases Of The Blood And Blood Forming Organs And Certain Disorders Involving The Immune Mechanism Gynecology in [place], [place] [address] [place] [phone] Social History Tobacco Use Types Packs/Day Years Used Date Smoking Tobacco: Never Assessed Sex Assigned at Date Recorded Not on file documented as of this encounter Consult Notes Verenice Hayward M.S., [employer] [employer] - 05/10/2022 2:00 PM CDT Images from the original note were not included. REASON FOR VISIT Family history of bleeding disorder HISTORY OF PRESENT ILLNESS History: Estimated Date of Delivery: 11/25/22 EGA: 11w2d Lay was referred for genetic counseling by Chacha Cosby C.N.M. to discuss her familyhistory of a bleeding disorder. This was conceived via Letrozole treatment. Lay's history is of note for a 6 week miscarriage. She is accompanied by her mother, Lupe . FAMILY HISTORY A focused family history was obtained as a part of the visit today. Our risk assessment is based upon medical and family history information as provided by the patient, and may change should new information be obtained. Overall, the remainder of the family history is not significant for intellectual disability, defects, multiple miscarriages or , or known genetic disorders. Lay is of descent. Her partner is of descent. There is no reported Ashkenazi Islam ancestry or consanguinity. PATIENT EDUCATION #1 26 y.o. female referred at approximately 11w2d #2 Family history of possible bleeding disorder (?von Willebrand disease) Lay is referred from [facility] today because of her reported family history of a bleeding disorder. Lay's mother was also in attendance today and allowed us to review her medical record ([phone] Lupe Cazares). Lay has no personal history of a bleeding disorder. She has not undergone a bleeding diathesis panel. Lay's mother, Lupe, reports she was told that she has von Willebrand disease. Lupe notes a history of heavy periods. She reports a history of Freda's and Celiac disease. Lupe notes she has receive infusions because of a history of bleeding. In reviewing Lupe's chart, her thrombophilia testing from 2002 was actually negative for von Willebrand disease. Most of Lupe's care has been outside of the [facility] since then. Lupe does report she has had infusions due to her bleeding issues. Additionally, I the family history, Lay's full brother had frequent nose bleeds and was reportedly diagnosed with a bleeding disorder after a tonsillectomy at age 6 and Lupe's sisterand maternal uncle also had non-specific bleeding issues. I shared with the patient today that our first step would be determining if there is a specific bleeding disorder in the family and if so, what that diagnosis is as this will help us in making recommendations for Marcoss and for the baby if they are at risk. Based on the records we have available to us today, there is not a clear answer. Based on the family history, if there is a bleeding disorder, it could be von Willebrand's, but we would not be able to rule out the possibility of an X-linked Hemophilia which could be more significant for the if it were an affected male. We could attempt to obtain additional records from other family members for review. We could also ask for input from our Hemophilia Clinic. Lay was interested in the latter option so I will start with an eConsult to obtain their recommendations for any evaluations. We reviewed that testing for von Willebrand factor in may not always be reliable. PLAN: I will request a hematology eConsult to see if they have recommendations for Lay given the family history of a possible bleeding disorder, and her current . We will place a referral pending their recommendations for evaluations If Lay does have a confirmed bleeding disorder, I would recommend an MFM evaluation to discuss maternal and management during and delivery. I would also recommend a return genetics visit to discuss more specific risks assessments for Lay's offspring. It was a pleasure to meet Lay. She verbalized understanding of the above information. The patient was encouraged to contact me with any further questions she may have. Patient Education: The impression and plans were explained in detail. There were no apparent barriers to learning or understanding. Questions were answered. 100% of 45 minutes spent on counseling and coordination of care. Verenice Hayward MS, [employer] documented in this encounter Plan of Treatment Not on filedocumented as of this encounter Visit Diagnoses Diagnosis Counseling Genetic Procreative Managemen t - Primary Family History Of Diseases Of The Blood And Blood Forming Organs And Certain Disorders Involving The Immune Mechanism documented in this encounter
--- OUTSIDE RECORDS SUMMARY | 2022-07-15 07:48 | XMS_ITS | Encounter Summary ---
:1995 Author Organization [facility] Address [address] [place] [address] Care Team Providers Name Role Phone Unavailable Primary Care Provider Unavailable Encounter Details Date Type Department Care Team Description 10/14/2004 Hospital Encounter HX [facility] PEDIATRIC Marvin Reid M.D. [address] [place], [place] [address] (Wo rk) Social History Tobacco Use Types Packs/Day Years Used Date Smoking Tobacco: Never Assessed Sex Assigned at Date Recorded Not on file documented as of this encounter Miscellaneous Notes Telephone Encounter - Conversion, Historical Provider Ser - 10/14/2004 12:00 AM CST [id number] Not eating. Seeming to vomit fluids up after taking. Source: [facility] Document Id: [id number] Telephone Encounter - Marvin Reid M.D. - 10/14/2004 12:00 AM CST [id number] Left message Source[facility] Document Id: [id number] Electronically signed by [facility], [facility] Instant Potato Processing Supervisor [id number] at 01/30/2017 8:35 PM CDT documented in this encounter Plan of Treatment Not on filedocumented as of this encounter Visit Diagnoses Not on filedocumented in this encounter
--- OUTSIDE RECORDS SUMMARY | 2022-07-15 07:48 | XMS_ITS | Encounter Summary ---
:1995 Author Organization [facility] Address [address] [place] [address] Care Team Providers Name Role Phone Unavailable Primary Care Provider Unavailable Encounter Details Date Type Department Care Team Description 07/03/2001 Hospital Encounter HX [facility] PEDIATRIC Margarito Bruno R.N. [address] [place] [phone] Social History Tobacco Use Types Packs/Day Years Used Date Smoking Tobacco: Never Assessed Sex Assigned at Date Recorded Not on file documented as of this encounter Miscellaneous Notes Telephone Encounter - Conversion, Historical Provider Ser - 07/03/2001 12:00 AM CST [id number] >> JUAN JOSE Gerber Jul 03, 2001 10:01 AM called in quantity sufficient to treat 4 children >> SABINA BRUNO kiara Jul 03, 2001 9:51 AM Mom just called again. Now there is 3 children with head lice. >> JUAN JOSE Gerber Jul 03, 2001 9:19 AM called in. Please contact mom to let her know. thanks. >> SABINA Gerber Jul 03, 2001 9:11 AM >> CALL RECEIVED. Contact: Laura: [phone] 2 of her 4 children have lice. One of the children is an infant. I have reviewed with mom the nic herrera protocol for lice. Mom has no money and would like you to call in a script so her insuranse wi ll pay for it. Pharm: [facility] Source: [facility] Document Id: [id number] documented in this encounter Plan of Treatment Not on filedocumented as of this encounter Visit Diagnoses Not on filedocumented in this encounter
--- OUTSIDE RECORDS SUMMARY | 2022-07-15 07:48 | XMS_ITS | Encounter Summary ---
:1995 Author Organization [facility] Address [address] [place] [address] Care Team Providers Name Role Phone Unavailable Primary Care Provider Unavailable Encounter Details Date Type Department Care Team Description 08/10/2002 Hospital Encounter HX NO MAPPING Provider, Historical Social History Tobacco Use Types Packs/Day Years Used Date Smoking Tobacco: Never Assessed Sex Assigned at Date Recorded Not on file documented as of this encounter Miscellaneous Notes Miscellaneous - Conversion, Historical Provider Ser - 08/10/2002 12:00 AM CHIEF DEPUTY CORONER [id number] Addended by: CHE VIGIL on: 08/12/2002,2:47 PM Comment: ERRONEOUS ENCOUNTER=PLEASE DISREGARDModu les accepted: Progress NotesERRONEOUS ENCOUNTER=PLEASE DISREGARD Source: [facility] RWHXTRANSXSYS Document Id: [id number] documented in this encounter Plan of Treatment Not on filedocumented as of this encounter Visit Diagnoses Not on filedocumented in this encounter
--- OUTSIDE RECORDS SUMMARY | 2022-07-15 07:48 | XMS_ITS | Encounter Summary ---
:1995 Author Organization [facility] Address [address] [place] [address] Care Team Providers Name Role Phone Unavailable Primary Care Provider Unavailable Encounter Details Date Type Department Care Team Description 10/14/2004 Hospital Encounter HX [facility] Marvin Reid M.D. [address] [place], [place] [address] (Wo rk) Social History Tobacco Use Types Packs/Day Years Used Date Smoking Tobacco: Never Assessed Sex Assigned at Date Recorded Not on file documented as of this encounter Progress Notes Marvin Reid M.D. - 10/14/2004 10:10 AM CST [id number] SUBJECTIVE: 9 year old female brought by mother with 10 days history of cough, headaches and fatigue. She has had decreased appetite, sleeping more, developed some vomiting overnight. Temperature febrile at home. No ear pain, pulling on ears, or diarrhea. Two sibs have similar, though milder, symptoms. OBJECTIVE: GENERAL: Patient NAD EYES: No drainage or injection EARS: TMs barnes and translucent bilaterally NOSE: Nares normal. Septum midline. Mucosa normal. No drainage or sinus tenderness. THROAT: Clear NECK: Supple without lymphadenopathy CHEST: Lungs crackles both bases, no wheezing HEART: RR without murmur ABD: Soft SKIN: no rashes ASSESSMENT: pneumonia PLAN: Antibiotics per orders. Symptomatic cares. Tigan suppositories for the vomiting. f/u prn. Source: [facility] Document Id: [id number] Electronically signed by Shelly [facility] Sumo Wrestler [id number] at 01/30/2017 8:35 PM CDT documented in this encounter Plan of Treatment Not on filedocumented as of this encounter Visit Diagnoses Not on filedocumented in this encounter
--- NOTE | 2022-07-15 08:15 | CRLHL7_ITS ---
For Patients: As a result of the Century Cures Act, medical imaging exams and procedure reports are released immediately into your electronic medical record. You may view this report before your referring provider. If you have questions, please contact your health care provider. INDICATION: Evaluate anatomy. COMPARISON: 04/19/2022 TECHNIQUE: Real time barnes scale imaging of the fetus was performed as well as color Doppler analysis of the umbilical vessels. FINDINGS: Sonographic imaging demonstrates a single living intrauterine gestation. Fetus demonstrates a regular cardiac rate of 150 beats per minute. Fetus has a variable position. The placenta lies anteriorly without evidence of placenta previa. The edge of the placenta is located 5.2 cm from the internal cervical os. Amniotic fluid volume appears normal. Single deepest vertical pocket: 5.6 cm. The cervix is closed and measures 4.5 cm in length. The composite ultrasound gestational age is calculated at 20 weeks 5 days with an estimated sonographic due date of 11/27/2022. The estimated weight is 367 grams which lies at the 48th %. The following biometric measurements were obtained: Biparietal diameter: 4.8 cm/20 weeks 4 days 52nd% Head circumference: 18.7 cm/21 weeks 0 days 63rd% Abdominal circumference: 15.4 cm/20 weeks 4 days 44th% Femur length: 3.4 cm/20 weeks 4 days 42nd% The HC/AC ratio measures: 1.22 range (1.06-1.25) On anatomic survey, there is a normal appearance of the cerebral ventricles, cavum septi pellucidi, cisterna magna and cerebellum. The nose, lips, and facial profile appear normal. The cervical, thoracic and lumbar spine are well visualized and appear normal. There is a normal four-chamber heart view and the left and right ventricular outflow tracts appear normal. The diaphragm and stomach appear normal. The kidneys and bladder also appear normal. There is a normal three-vessel cord and cord insertion site. The four extremities appear normal. IMPRESSION: Concordance of clinical and sonographic dating. Incomplete visualization of the outflow tracts. Mio cisterna magna. Cisterna magna measures 10.6 millimeters. Level 2 ultrasound recommended. Dictated by Naeem Jaeger MD @ 07/15/2022 10:43:35 AM (Electronically Signed)
== END 2022-07-15 07:46 | disposition home or self-care (01) ==
LOC: US 07:46
PROVIDERS: Visit Provider Advanced Practice Midwife
DX: Z34.82 Encounter for supervision of other normal pregnancy, second trimester (principal); Z3A.20 20 weeks gestation of pregnancy
CPT/HCPCS: 76805

== ENCOUNTER 2022-07-20 14:48 | Outpatient (CLI) | payer BC, SELFPAY ==
--- OUTSIDE RECORDS SUMMARY | 2022-07-20 14:50 | XMS_ITS | Encounter Summary ---
:1995 Author Organization [facility] Address [address] [place] [address] Care Team Providers Name Role Phone Unavailable Primary Care Provider Unavailable Encounter Details Date Type Department Care Team Description 09/07/2009 Hospital Encounter HX [facility] PED[facility] Dech, Marvin Elizabeth M.D. [address] [place], [place] [address] (Wo rk) Social History Tobacco Use Types Packs/Day Years Used Date Smoking Tobacco: Never Assessed Sex Assigned at Date Recorded Not on file documented as of this encounter Progress Notes Ayla Terry R.N. - 09/07/2009 10:50 AM CST [id number] Vision Screening Both Eyes: 20/50 Right Eye: 20/50 Left Eye: 20/50 Corrected: No Patient: Lay Faye Tested by: Ayla Terry Date: 09/07/2009 The Swiss responses were used in this documentation with [...] 4000hz - n/a 500hz - n/a Source: [facility] BILOXIHXTRANSXRTFSYS Document Id: [id number] Electronically signed by Conversion, [facility] Farm Laborer [id number] at 01/29/2017 7:10 AM CDT Marvin Reid M.D. - 09/07/2009 10:50 AM CST [id number] Please scan [facility] sports PE form here. Source: [facility] BILOXIHXTRANSXRTFSYS Document Id: [id number] Electronically signed by Conversion, [facility] Farm Laborer [id number] at 01/29/2017 7:10 AM CDT documented in this encounter Plan of Treatment Not on filedocumented as of this encounter Visit Diagnoses Not on filedocumented in this encounter
--- OUTSIDE RECORDS SUMMARY | 2022-07-20 14:50 | XMS_ITS | Encounter Summary ---
:1995 Author Organization [facility] Address [address] [place] [address] Care Team Providers Name Role Phone Unavailable Primary Care Provider Unavailable Encounter Details Date Type Department Care Team Description 12/23/2020 Orders Only [facility] PCP [facility] Sa mike Le M.D. [address] [place] [phone] (Wo rk) Social History Tobacco Use Types Packs/Day Years Used Date Smoking Tobacco: Never Assessed Sex Assigned at Date Recorded Not on file documented as of this encounter Plan of Treatment Not on filedocumented as of this encounter Visit Diagnoses Not on filedocumented in this encounter
--- OUTSIDE RECORDS SUMMARY | 2022-07-20 14:50 | XMS_ITS | Clinical Summary ---
:1995 Author Organization [facility] Address [address] [place] [address] Care Team Providers Name Role Phone Unavailable Primary Care Provider Unavailable Source Comments Patient records contain information from all sites at [facility]. For routine questions regarding patient records, call [phone] during business hours, M-F 8:00 AM - 5:00 PM Central Time. Record requests for emergency care only can be directed to [phone] at any time.[facility] Encounters Date Type Specialty Care Team Description [...] The Immune Mechanism C.N.M. Verenice Hayward M.S., [facility] 04/22/2022 Community Orders Fernanda Cosby, Family History [...] Phone Addre ss Type Group [facility] [id number] 2021-[place] [phone] [address] [address] PPO BLUE SHIELD [address] [place] [address]
--- OUTSIDE RECORDS SUMMARY | 2022-07-20 14:50 | XMS_ITS | Encounter Summary ---
:1995 Author Organization [facility] Address [address] [place] [address] Care Team Providers Name Role Phone Unavailable Primary Care Provider Unavailable Reason for Visit Reason Onset Date Comments Outpatient COVID-19 Testing 07/16/2020 Encounter Details Date Type Department Care Team Description 07/16/2020 External Outreach Department of [facility] Elina Mcgill Infection [facility] Medicine, [place] [facility] Strickland Respiratory (Primary Clinic, in [facility] [address]) [place], [place] [address] [address] [place], [place] [phone] (Work) [phone] Social History Tobacco Use Types Packs/Day Years Used Date Smoking Tobacco: Never Assessed Sex Assigned at Date Recorded Not on file documented as of this encounter Progress Notes Natalie Dodd, LPromiseP.N. - 07/16/2020 1:15 PM CST Encounter created for the drive-through COVID-19 testing. ECT DEVELOPMENT DIRECTOR documented in this encounter Plan of Treatment Not on filedocumented as of this encounter Procedures Procedure Name Priority Date/Time Associated Diagnosis Comme nts SARS CORONAVIRUS-2 Routine 07/16/2020 1:49 PM Infection Upper Results for this RNA, V PROJECT DEVELOPMENT DIRECTOR Respiratory procedure are i n the results section. documented in this encounter Results SARS Coronavirus-2 RNA, V Symptomatic (07/16/2020 1:49 PM PROJECT DEVELOPMENT DIRECTOR) [facility] Method Time Signature SARS-CoV-2 Swab, 07/17/2020 ECLR Specimen Nasopharynx 1:25 PM PROJECT DEVELOPMENT DIRECTOR Source SARS CoV-2 Undetected Undetected 07/17/2020 ECLR RNA, TMA 1:25 PM PROJECT DEVELOPMENT DIRECTOR Comment: SARS-CoV-2 RNA absent. This result does not rule out COVID-19 in the patient, as the sensitivity of the test depends o n the timing of the specimen collection and the quality of the specim en. Result should be correlated with patient's history and clinical presentat ion. ----ADDITIONAL INFORMATION---- This test is performed using the Aptima SARS-CoV-2 assay ([employer] which has received Emergency Use Authori zation (EUA) by the U.S. Food and Drug Administration. Fact sheets for this Emergency Use Autho rization (EUA) assay can be found at the following links: For Healthcare Providers: https://www.fd a.gov/media/749320/download For Patients: https://www.fda.gov/media/ 716121/download Specimen Anatomical Collection Method Collection Time Receive d Time (Source) Location / / Volume Laterality Varies 07/16/2020 1:49 PM 0 9:59 (Nasopharynx) PROJECT DEVELOPMENT DIRECTOR PM PROJECT DEVELOPMENT DIRECTOR José Miguel Mcgill P.A.-C. LAB MICROBIOLOGY - GENERAL O RDERABLES Performing Organization Address City/State/ZIP Code Phon e Number [facility]- [address] [place] [address] [address] [facility] [place] [address] [address] documented in this encounter Visit Diagnoses Diagnosis Infection Upper Respiratory - Primary documented in this encounter Additional Health Concerns Infection Onset Date Last Indicated Resolved Time COVID19 Pending 07/16/2020 07/16/2020 07/17/2020 1:26 PM PROJECT DEVELOPMENT DIRECTOR documented as of this encounter
--- OUTSIDE RECORDS SUMMARY | 2022-07-20 14:50 | XMS_ITS | Clinical Summary ---
:1995 Author Organization [facility] [place] [address] Care Team Providers Name Role Phone Angela [...] 37.2 ??C (98.9 ??F) 09/09/2021 10:16 AM HEAD COOK Respiratory Rate 16 12/27/2021 2:22 PM CDT [...] Type Group BLUE CROSS BLUE CROSS OF [id number] 2021-Present [address] [address] [place] [phone] Lay Clancy Personal/Family Self 1995 [address] (Home) [place] [address] Care Teams Oil Agent Relationship Specialty Start Date End Date Angela Carpenter PA PCP - General Physician Assistant Sales Center Manager 06/26/[address] [place] [address]
--- OUTSIDE RECORDS SUMMARY | 2022-07-20 14:50 | XMS_ITS | Encounter Summary ---
:1995 Author Organization [facility] Address [address] [place] [address] Care Team Providers Name Role Phone Unavailable Primary Care Provider Unavailable Reason for Visit Outpatient (Routine) - Closed Specialty Diagnoses / Procedures Referred By Contact Refer red To Contact Hematology Diagnoses Family History Of Diseases Of The Blood And Blood Forming Organs And Certain Disorders Involving The Immune Mechanism Mike Kumar M.D. [facility] Procedures Hematology - Coagulation/Hemophilia eConsult [address] [place] [phone] Referral ID Status Reason Start Date Expiration Date Visits Requ ested Visits Authorized [id number] Closed 05/26/2022 05/26/2023 1 1 Encounter Details Date Type Department Care Team Description 05/30/2022 Internal E-Consult Division of [facility] Family History Von Willebrand Disease (Primary Dx); Hematology elena Coreas M.D., M.S. Family History Of Diseases Of The Blood And Blood Forming Organs And Certain Disorders Involving The Immune Mechanism [place], [place] [address] [facility] [address] [place] [phone] Social History Tobacco Use Types Packs/Day Years [...] her von Willebrand panel from 2002here at [facility] was apparently within the normal reference range. [...] disorder. If additional questions arise, or if [id number] consultation is desired, please refer Ms. Clancy [...]
--- OUTSIDE RECORDS SUMMARY | 2022-07-20 14:50 | XMS_ITS | Encounter Summary ---
:1995 Author Organization [facility] Address [address] [place] [address] Care Team Providers Name Role Phone Unavailable Primary Care Provider Unavailable Reason for Referral Outpatient (Routine) - Closed Specialty Diagnoses / Procedures Referred By Contact Refer red To Contact Obstetrics and Diagnoses Family History Of Diseases Of The Blood And Blood Forming Organs And Certain Disorders Involving The Immune Mechanism Maddy Vasquez [facility] Gynecology Chacha Desai C.N.M. [address] [place] [address] Referral ID Status Reason Start Date Expiration Date Visits Requ ested Visits Authorized [id number] Closed 04/22/2022 04/22/2023 1 1 Encounter Details Date Type Department Care Team Description 04/22/[address] [facility] Fernanda Cosby, [facility] History Of AND CLINICS Chacha Desai C.N.M. Diseases Of The [address] [place] [address] [address] [facility] [place] [address] [place], [place] Forming Organs And [phone] Certain Disorders [phone] Involving The I mmune (Work) Mechanism (Primary [phone] Dx) (Fax) Social History Tobacco Use Types [...]
--- OUTSIDE RECORDS SUMMARY | 2022-07-20 14:50 | XMS_ITS | Encounter Summary ---
:1995 Author Organization [facility] Address [address] [place] [address] Care Team Providers Name Role Phone Unavailable Primary Care Provider Unavailable Encounter Details Date Type Department Care Team Description 06/03/2010 Hospital Encounter HX [facility]EDI[facility]RIC Dec, Marvin Elizabeth M.D. [address] [place], [place] [address] (Wo rk) Social History Tobacco Use Types Packs/Day Years Used Date Smoking Tobacco: Never Assessed Sex Assigned at Date Recorded Not on file documented as of this encounter Plan of Treatment Not on filedocumented as of this encounter Visit Diagnoses Not on filedocumented in this encounter
--- OUTSIDE RECORDS SUMMARY | 2022-07-20 14:51 | XMS_ITS | Encounter Summary ---
:1995 Author Organization [facility] Address [address] [place] [address] Care Team Providers Name Role Phone Unavailable [...] Historical Provider Ser - 08/10/2002 12:00 AM LINEN ROOM ATTENDANT [id number] Addended by: CHE VIGIL on: 08/12/2002,2:47 PM Comment: ERRONEOUS ENCOUNTER=PLEASE DISREGARDModu les accepted: Progress NotesERRONEOUS ENCOUNTER=PLEASE DISREGARD Source: [facility] RWHXTRANSXSYS Document Id: [id number] documented in this encounter Plan of Treatment Not on filedocumented as of this encounter Visit Diagnoses Not on filedocumented in this encounter
--- OUTSIDE RECORDS SUMMARY | 2022-07-20 14:51 | XMS_ITS | Encounter Summary ---
:1995 Author Organization [facility] Address [address] [place] [address] Care Team Providers Name Role Phone Unavailable Primary Care Provider Unavailable Encounter Details Date Type Department Care Team Description 04/26/2001 Hospital En[facility] Margarito Kohli R.NPromise [address] [place] [phone] Social History Tobacco Use Types Packs/Day Years Used Date Smoking Tobacco: Never Assessed Sex Assigned at Date Recorded Not on file documented as of this encounter Plan of Treatment Not on filedocumented as of this encounter Visit Diagnoses Not on filedocumented in this encounter
--- OUTSIDE RECORDS SUMMARY | 2022-07-20 14:51 | XMS_ITS | Encounter Summary ---
:1995 Author Organization [facility] Address [address] [place] [address] Care Team Providers Name Role Phone Unavailable Primary Care Provider Unavailable Encounter Details Date Type Department Care Team Description 11/12/2002 Hospital Encounter [facility]ED[facility] Dech, Marvin Elizabeth M.D. [address] [place], [place] [address] (Wo rk) Social History Tobacco Use Types Packs/Day Years Used Date Smoking Tobacco: Never Assessed Sex Assigned at Date Recorded Not on file documented as of this encounter Progress Notes Conversion, Historical Provider Ser - 11/12/2002 10:50 AM CST [id number] Pt is a 7 year old female [...] worsen or persist beyond 7 days. Source: [facility] RWHXTRANSXSYS Document Id: [id number] documented in this encounter Plan of Treatment Not on filedocumented as of this encounter Visit Diagnoses Not on filedocumented in this encounter
--- OUTSIDE RECORDS SUMMARY | 2022-07-20 14:51 | XMS_ITS | Encounter Summary ---
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 Return for office visit if symptoms worsen or moira l to improve. Andria Salgado PA-C/carmellaD: 10/30/2003T: 10/31/2003 [facility] Document Id: [id number] documented in this encounter Plan of Treatment Not on filedocumented as of this encounter Visit Diagnoses Not on filedocumented in this encounter
--- OUTSIDE RECORDS SUMMARY | 2022-07-20 14:51 | XMS_ITS | Encounter Summary ---
:1995 Author Organization [facility] Address [address] [place] [address] Care Team Providers Name Role Phone Unavailable Primary Care Provider Unavailable Encounter Details Date Type Department Care Team Description 05/22/2001 Hospital Encounter [facility]ED[facility] Dech, Marvin Elizabeth M.D. [address] [place], [place] [address] (Wo rk) Social History Tobacco Use Types Packs/Day Years Used Date Smoking Tobacco: Never Assessed Sex Assigned at Date Recorded Not on file documented as of this encounter Progress Notes Conversion, Historical Provider Ser - 05/22/2001 1:30 PM CDT [id number] NAME: Lay Faye AGE: 55 year old SEX: femalePROCEDURE: Dental episcopal under anes thesia DATE: 05/23/01 [facility] #PRESENT [...] no massesGenitalia:nlSkeletal:no deformitiesLymphoid:no LASkin:no ra shNeuromuscular:nonfocalPHYSICAL EXAM:@blhgb@ @[facility]@ Other: Chest X- ray:EKG (or photo copy):Impression:Dental cariesOther comments:This patient has been examined by me this day and sanchez s been found to be an acceptable candidate for surgery with apppropriate anesthesia.Marvin Reid Office Number: [phone] Source: [facility] RWHXTRANSXSYS Document Id: [id number] documented in this encounter Plan of Treatment Not on filedocumented as of this encounter Visit Diagnoses Not on filedocumented in this encounter
--- OUTSIDE RECORDS SUMMARY | 2022-07-20 14:51 | XMS_ITS | Encounter Summary ---
:1995 Author Organization [facility] Address [address] [place] [address] Care Team Providers Name Role Phone Unavailable Primary Care Provider Unavailable Encounter Details Date Type Department Care Team Description 04/14/2008 Hospital Encounter [facility] Provider, Michael العلي Social History Tobacco Use Types Packs/Day Years Used Date Smoking Tobacco: Never Assessed Sex Assigned at Date Recorded Not on file documented as of this encounter Plan of Treatment Not on filedocumented as of this encounter Visit Diagnoses Not on filedocumented in this encounter
--- OUTSIDE RECORDS SUMMARY | 2022-07-20 14:51 | XMS_ITS | Encounter Summary ---
:1995 Author Organization [facility] Address [address] [place] [address] Care Team Providers Name Role Phone Unavailable Primary Care Provider Unavailable Encounter Details Date Type Department Care Team Description 09/27/2006 Hospital Encounter [facility]ED[facility] Jennifer Hein R.N. [address] [place] [address] Social History Tobacco Use Types Packs/Day Years Used Date Smoking Tobacco: Never Assessed Sex Assigned at Date Recorded Not on file documented as of this encounter Miscellaneous Notes Telephone Encounter - Ann Hein R.N. - 09/27/2006 12:00 AM EMERGENCY ROOM CLINICIAN [id number] TELEPHONE TRIAGE ENCOUNTER FORM Date: 09/27/2006 PCP: Marvin Reid MD Patient Name: Lay Faye Gender: female : 1995 Age: [age] year old Time: 10:02 AM Phone Numbers: [phone] (home) Pharmacy: [facility] ([facility]) - [facility] ASSESSMENT Presenting Problem: bladder infection Subjective/objective: Has [...] to plan? Yes EVALUATION / FOLLOW-UP Source: [facility] Document Id: [id number] documented in this encounter Plan of Treatment Not on filedocumented as of this encounter Visit Diagnoses Not on filedocumented in this encounter
--- OUTSIDE RECORDS SUMMARY | 2022-07-20 14:51 | XMS_ITS | Encounter Summary ---
:1995 Author Organization [facility] Address [address] [place] [address] Care Team Providers Name Role Phone Unavailable Primary Care Provider Unavailable Encounter Details Date Type Department Care Team Description 04/17/2001 Hospital Encounter [facility] PED[facility] Major De Luna ea, L.P.N. [address] [place] [address] Social History Tobacco Use Types Packs/Day Years Used Date Smoking Tobacco: Never Assessed Sex Assigned at Date Recorded Not on file documented as of this encounter Plan of Treatment Not on filedocumented as of this encounter Visit Diagnoses Not on filedocumented in this encounter
--- OUTSIDE RECORDS SUMMARY | 2022-07-20 14:51 | XMS_ITS | Encounter Summary ---
:1995 Author Organization [facility] Address [address] [place] [address] Care Team Providers Name Role Phone Unavailable Primary Care Provider Unavailable Encounter Details Date Type Department Care Team Description 08/11/2002 Hospital Encounter HX NO MAPPING Raheel Rosado M.D. [address] [place], [place] [phone] (Wo rk) Social History Tobacco Use Types Packs/Day Years Used Date Smoking Tobacco: Never Assessed Sex Assigned at Date Recorded Not on file documented as of this encounter Plan of Treatment Not on filedocumented as of this encounter Visit Diagnoses Not on filedocumented in this encounter
--- OUTSIDE RECORDS SUMMARY | 2022-07-20 14:51 | XMS_ITS | Encounter Summary ---
:1995 Author Organization [facility] Address [address] [place] [address] Care Team Providers Name Role Phone Unavailable Primary Care Provider Unavailable Encounter Details Date Type Department Care Team Description 05/22/2001 Hospital Encounter [facility]X [facility]ED[facility] Zayra Arredondo ROpal Social History Tobacco Use Types Packs/Day Years Used Date Smoking Tobacco: Never Assessed Sex Assigned at Date Recorded Not on file documented as of this encounter Plan of Treatment Not on filedocumented as of this encounter Visit Diagnoses Not on filedocumented in this encounter
--- OUTSIDE RECORDS SUMMARY | 2022-07-20 14:51 | XMS_ITS | Encounter Summary ---
:1995 Author Organization [facility] Address [address] [place] [address] Care Team Providers Name Role Phone Unavailable Primary Care Provider Unavailable Encounter Details Date Type Department Care Team Description 09/14/2006 Hospital Encounter HX [facility] Art Kinney O.D. Social History Tobacco Use Types Packs/Day Years Used Date Smoking Tobacco: Never Assessed Sex Assigned at Date Recorded Not on file documented as of this encounter Progress Notes Art Abreu O.D. - 09/14/2006 11:00 AM CST [id number] CLINIC ENCOUNTER SLIT LAMP EXAM: Shows angles [...] problems. Art Abreu O.D. KMManolo/arlene cc: Source: [facility] Document Id: [id number] Electronically signed by Conversion, [facility] Industrial Tractor Driver [id number] at 01/30/2017 6:53 AM CDT Conversion, Historical Provider Ser - 09/14/2006 11:00 AM CST [id number] Pain Questionnaire: Is your visit today because [...] HISTORY: No family history on file Source: [facility]XRTFUN[facility] Document Id: [id number] Art Abreu O.D. - 09/14/2006 11:00 AM CST [id number] Lay Faye is here for an exam. ON EXAM: Near point convergence: to nose. Mobility: FROM. Pupils: PERRLA, MG and no afferent defect. Visual Field: Confrontation, WNL OD & OS. Induced Phorias: Distance: 2, exo. Near:8, exo. Vertical Phoria:ortho. Source: [facility]ITALXTRANSXRTFUNIV[facility] Document Id: [id number] Electronically signed by Conversion, [facility] Industrial Tractor Driver [id number] at 01/30/2017 6:53 AM CDT documented in this encounter Plan of Treatment Not on filedocumented as of this encounter Visit Diagnoses Not on filedocumented in this encounter
--- OUTSIDE RECORDS SUMMARY | 2022-07-20 14:51 | XMS_ITS | Encounter Summary ---
:1995 Author Organization [facility] Address [address] [place] [address] Care Team Providers Name Role Phone Unavailable Primary Care Provider Unavailable Encounter Details Date Type Department Care Team Description 07/30/2008 Hospital Encounter HX [facility] Provider, Michael العلي Social History Tobacco Use Types Packs/Day Years Used Date Smoking Tobacco: Never Assessed Sex Assigned at Date Recorded Not on file documented as of this encounter Progress Notes Conversion, Historical Provider Ser - 07/30/2008 4:15 PM CST [id number] Lay Faye is a 13 year old female. Patient received: FLUMIST NASAL INHALATION Patient Questionaire: I am between ages 2-49 years? YES I have a fever or feel ill today? No I have an allergy to eggs? No I have had a reaction to the flu vaccine the past? No I have had Guillain-Banquete syndrome? No I have had a usp health problem such as heart, lung, kidney [...] box in descending order):is enrolled in a [facility] Care Program: - [facility] Source: [facility]RTFS[facility] Document Id: [id number] documented in this encounter Plan of Treatment Not on filedocumented as of this encounter Visit Diagnoses Not on filedocumented in this encounter
--- OUTSIDE RECORDS SUMMARY | 2022-07-20 14:51 | XMS_ITS | Encounter Summary ---
:1995 Author Organization [facility] Address [address] [place] [address] Care Team Providers Name Role Phone Unavailable [...]
--- OUTSIDE RECORDS SUMMARY | 2022-07-20 14:51 | XMS_ITS | Encounter Summary ---
:1995 Author Organization [facility] Address [address] [place] [address] Care Team Providers Name Role Phone Unavailable Primary Care Provider Unavailable Encounter Details Date Type Department Care Team Description 06/20/[address] [facility] Dech, Marvin Elizabeth M.D. [address] [place], [place] [address] (Wo rk) Social History Tobacco Use Types Packs/Day Years Used Date Smoking Tobacco: Never Assessed Sex Assigned at Date Recorded Not on file documented as of this encounter Progress Notes Conversion, Historical Provider Ser - 06/20/2003 8:50 AM CDT [id number] Lay Faye is a 8 year old [...] evidence of a bleedi ng disorder. Source: [facility] Document Id: [id number] documented in this encounter Plan of Treatment Not on filedocumented as of this encounter Visit Diagnoses Not on filedocumented in this encounter
--- OUTSIDE RECORDS SUMMARY | 2022-07-20 14:51 | XMS_ITS | Encounter Summary ---
:1995 Author Organization [facility] Address [address] [place] [address] Care Team Providers Name Role Phone Unavailable Primary Care Provider Unavailable Encounter Details Date Type Department Care Team Description 12/23/2004 Hospital Encounter [facility] Marvin Reid M.D. [address] [place], [place] [address] (Wo rk) Social History Tobacco Use Types Packs/Day Years Used Date Smoking Tobacco: Never Assessed Sex Assigned at Date Recorded Not on file documented as of this encounter Progress Notes Marvin Reid M.D. - 12/23/2004 10:30 AM CDT [id number] SUBJECTIVE: Lay Faye is an 9 year [...] for antibiotic treatment if Strep found. Source: [facility] RWMCHXTRANSXRTFSYS Document Id: [id number] Electronically signed by Conversion, [facility] Windows Vmware Administrator [id number] at 01/30/2017 9:02 PM CDT documented in this encounter Plan of Treatment Not on filedocumented as of this encounter Visit Diagnoses Not on filedocumented in this encounter
--- OUTSIDE RECORDS SUMMARY | 2022-07-20 14:51 | XMS_ITS | Encounter Summary ---
:1995 Author Organization [facility] Address [address] [place] [address] Care Team Providers Name Role Phone Unavailable Primary Care Provider Unavailable Encounter Details Date Type Department Care Team Description 11/17/2008 Hospital Encounter HX [facility] Marvin Reid M.D. [address] [place], [place] [address] (Wo rk) Social History Tobacco Use Types Packs/Day Years Used Date Smoking Tobacco: Never Assessed Sex Assigned at Date Recorded Not on file documented as of this encounter Progress Notes Marvin Reid M.D. - 11/17/2008 3:10 PM CDT [id number] Please scan [facility] sports PE form here. Source: [facility]ENTERHXTRANSXRTFSYS Document Id: [id number] Electronically signed by Shelly, [facility] Vice President Business Development [id number] at 01/29/2017 4:36 PM CDT documented in this encounter Plan of Treatment Not on filedocumented as of this encounter Visit Diagnoses Not on filedocumented in this encounter
--- OUTSIDE RECORDS SUMMARY | 2022-07-20 14:51 | XMS_ITS | Encounter Summary ---
:1995 Author Organization [facility] Address [address] [place] [address] Care Team Providers Name Role Phone Unavailable [...]
--- OUTSIDE RECORDS SUMMARY | 2022-07-20 14:51 | XMS_ITS | Encounter Summary ---
:1995 Author Organization [facility] Address [address] [place] [address] Care Team Providers Name Role Phone Unavailable Primary Care Provider Unavailable Encounter Details Date Type Department Care Team Description 04/02/2002 Hospital Encounter [facility] Dech, Marvin Elizabeth M.D. [address] [place], [place] [address] (Wo rk) Social History Tobacco Use Types Packs/Day Years Used Date Smoking Tobacco: Never Assessed Sex Assigned at Date Recorded Not on file documented as of this encounter Progress Notes Conversion, Historical Provider Ser - 04/02/2002 1:30 PM CDT [id number] Lay Faye is a 6 year old female here for well child exam.Brought in by mother. Lives with fe membreno.HISTORYHealth Concerns: Has had occasional days where she will complain of pain, sometimes in her mid-chest, sometimes in her left side it lasts for a few hours and then goes away. Her activity is somewhat decreased while complaining of symptoms. This has happened about 7 times in the last se veral months.There is no problem list on file for this patient.Review of patient's past medical hi story indicates: OTITIS MEDIA NOS Comment: history of Current prescriptions:NO ACTIVE MEDICATIONS, ., D: 0, R: 0Review of patient's allergies indicate s: Adhesive Tape rash,skin peels off.Noteworthy social stressors: nonePHYSICAL EXAM CAT Phy sical: NoBP 97/53 Pulse 93 Ht 3' 10.25 (1.175m) Wt 51 lbs 5 oz (23.270 kg)General: Alert, i nteractive and appropriate, cooperative and no distressHead: Head normalEyes: Conj not injected. B ilat red reflex present. EOMs intact, w/o strabismus. PERLVISUAL ACUITY - R: Normal; L: Normal Both : NormalEars: Ears normalHEARING SCREEN - R: Not performed; L: Not performedNose: Nares normalMou th: Oropharynx normalNeck: Supple without masses. Thyroid normalResp: Breathing not labored. Chest clear to auscultation.Heart: Reg rate and rhythm. NL S1 S2. No murmurs. Fem pulses full and symmAbdomen: Soft, nontender. Normal bowel sounds. No hepatosplenomegaly or abnormal massesL ymph: No lymphadenopathy.Genitalia: .sex genitalia normalMusculoskeletal: Spine straight w/o scolio sis. NL and symmetric strength and tone. Hips NL.Skin: No rashes, induration, or cyanosis.Neurolog ical: Appropriate for ageImmunizations up to date: YesIf no, list given.PLAN:1. Education/Disc ussed: Food groupsSnacksSeatbelt safetyDental visitSunscreen.2. RTC 8 years of age3. Dental referral (CAT) Source: [facility] RWHXTRANSXSYS Document Id: [id number] documented in this encounter Plan of Treatment Not on filedocumented as of this encounter Visit Diagnoses Not on filedocumented in this encounter
--- OUTSIDE RECORDS SUMMARY | 2022-07-20 14:51 | XMS_ITS | Encounter Summary ---
:1995 Author Organization [facility] Address [address] [place] [address] Care Team Providers Name Role Phone Unavailable Primary Care Provider Unavailable Encounter Details Date Type Department Care Team Description 11/27/2007 Hospital Encounter HX [facility] Ra luz Burkett P.A.-C. [address] [place] [phone] (Wo rk) Social History Tobacco Use Types Packs/Day Years Used Date Smoking Tobacco: Never Assessed Sex Assigned at Date Recorded Not on file documented as of this encounter Progress Notes Rocio Burkett P.A.-C. - 11/27/2007 3:50 PM CDT [id number] SUBJECTIVE: Lay is a 12 year old [...] if no improvement over next month. Source: [facility] RWMCHXTRANSXRTFSYS Document Id: [id number] Electronically signed by Conversion, [facility] Sheet Metal Pattern Cutter [id number] at 01/30/2017 1:46 AM CDT documented in this encounter Plan of Treatment Not on filedocumented as of this encounter Visit Diagnoses Not on filedocumented in this encounter
--- OUTSIDE RECORDS SUMMARY | 2022-07-20 14:51 | XMS_ITS | Encounter Summary ---
:1995 Author Organization [facility] Address [address] [place] [address] Care Team Providers Name Role Phone Unavailable Primary Care Provider Unavailable Encounter Details Date Type Department Care Team Description 07/25/2008 Hospital Encounter HX [facility] Dech, Marvin Elizabeth M.D. [address] [place], [place] [address] (Wo rk) Social History Tobacco Use Types Packs/Day Years Used Date Smoking Tobacco: Never Assessed Sex Assigned at Date Recorded Not on file documented as of this encounter Miscellaneous Notes Miscellaneous - Becka Ortiz R.N. - 07/25/2008 12:00 AM CST [id number] July 25, 2008 Lay Faye [address] [place] [phone] Dear Ms. Faye, It has come to [...] final HPV immunization. Please call us at [phone] to make a Nurse Only Visit appointment and we can assist you with completing this series. This is important for your continued health. The Pediatric and Family Practice clinic receptionist can schedule your visit between 8:30 AM and 4 PM Monday thru Monday. Thank you. Primary Care Department Source: [facility]XTRANSXRTFSYS Document Id: [id number] Electronically signed by Conversion, [facility] Director Summer Sessions [id number] at 01/30/2017 1:00 AM CDT documented in this encounter Plan of Treatment Not on filedocumented as of this encounter Visit Diagnoses Not on filedocumented in this encounter
--- OUTSIDE RECORDS SUMMARY | 2022-07-20 14:51 | XMS_ITS | Encounter Summary ---
:1995 Author Organization [facility] Address [address] [place] [address] Care Team Providers Name Role Phone Unavailable Primary Care Provider Unavailable Encounter Details Date Type Department Care Team Description 07/04/2001 Hospital Encounter HX [facility] Margarito Bruno R.NPromise [address] [place] [phone] Social History Tobacco Use Types Packs/Day Years Used Date Smoking Tobacco: Never Assessed Sex Assigned at Date Recorded Not on file documented as of this encounter Miscellaneous Notes Telephone Encounter - Conversion, Historical Provider Ser - 07/04/2001 12:00 AM CST [id number] Addended by: SABINA BRUNO on: 07/04/2001,11:22 AMModules accepted: Progress NotesPH[facility]ENTARA [facility] MonJul 04, 2001 10:37 AMCalled mom. Explained that this formulation remains active for severa l days after application. Can retreat every 7-10 days prn. She will call next monday if she is sti ll seeing live lice at that time.SABINA BRUNO MonJul 04, 2001 10:26 AMCALL RECEIVED. Contact: Laura: [phone] child and her three siblings were treated yesterday for lice. You c alled [facility] an rx to [facility]. Today they still have live lice. Mom would like another refill. Please c all to [facility]. [facility] is now out of NIX. Source: [facility] Document Id: [id number] documented in this encounter Plan of Treatment Not on filedocumented as of this encounter Visit Diagnoses Not on filedocumented in this encounter
--- OUTSIDE RECORDS SUMMARY | 2022-07-20 14:51 | XMS_ITS | Encounter Summary ---
:1995 Author Organization [facility] Address [address] [place] [address] Care Team Providers Name Role Phone Unavailable Primary Care Provider Unavailable Encounter Details Date Type Department Care Team Description 10/14/2004 Hospital Encounter HX [facility] Marvin Reid M.D. [address] [place], [place] [address] (Wo rk) Social History Tobacco Use Types Packs/Day Years Used Date Smoking Tobacco: Never Assessed Sex Assigned at Date Recorded Not on file documented as of this encounter Miscellaneous Notes Telephone Encounter - Conversion, Historical Provider Ser - 10/14/2004 12:00 AM CST [id number] Not eating. Seeming to vomit fluids up after taking. Source: [facility]TR[facility]FSY Document Id: [id number] Telephone Encounter - Marvin Reid M.D. - 10/14/2004 12:00 AM CST [id number] Left message Source: [facility]XTRANSXRTFCON[facility] Document Id: [id number] Electronically signed by [facility], [facility] Laser Beam Machine Operator [id number] at 01/30/2017 8:35 PM CDT documented in this encounter Plan of Treatment Not on filedocumented as of this encounter Visit Diagnoses Not on filedocumented in this encounter
--- OUTSIDE RECORDS SUMMARY | 2022-07-20 14:51 | XMS_ITS | Encounter Summary ---
:1995 Author Organization [facility] Address [address] [place] [address] Care Team Providers Name Role Phone Unavailable Primary Care Provider Unavailable Encounter Details Date Type Department Care Team Description 07/03/2001 Hospital Encounter HX [facility] Margarito Bruno R.N. [address] [place] [phone] Social History Tobacco Use Types Packs/Day Years Used Date Smoking Tobacco: Never Assessed Sex Assigned at Date Recorded Not on file documented as of this encounter Miscellaneous Notes Telephone Encounter - Conversion, Historical Provider Ser - 07/03/2001 12:00 AM CST [id number] >> JUAN JOSE Gerber Jul 03, 2001 [...] 9:11 AM >> CALL RECEIVED. Contact: Laura: [phone] 2 of her 4 children have lice. One of the children is an infant. I have reviewed with mom the nic herrera protocol for lice. Mom has no money and would like you to call in a script so her insuranse wi ll pay for it. Pharm: [facility] Source: [facility] Document Id: [id number] documented in this encounter Plan of Treatment Not on filedocumented as of this encounter Visit Diagnoses Not on filedocumented in this encounter
--- OUTSIDE RECORDS SUMMARY | 2022-07-20 14:51 | XMS_ITS | Encounter Summary ---
:1995 Author Organization [facility] Address [address] [place] [address] Care Team Providers Name Role Phone Unavailable Primary Care Provider Unavailable Encounter Details Date Type Department Care Team Description 04/17/2001 Hospital Encounter [facility] Dech, Marvin Elizabeth M.D. [address] [place], [place] [address] (Wo rk) Social History Tobacco Use Types Packs/Day Years Used Date Smoking Tobacco: Never Assessed Sex Assigned at Date Recorded Not on file documented as of this encounter Progress Notes Conversion, Historical Provider Ser - 04/17/2001 11:10 AM CDT [id number] Lay Faye is a 5 year old male here for 5 year well child exam. He will be attending [employer] next fall.Brought in by mother. HISTORYCurrent Concerns: Mom has concerns r.e. speech. Is thuy ewhat inarticulate. This has been previously identified and she is receiving services through the [facility]. Mom also notes that she toe-walks alot. She was eval'ed at [facility] when she was 2, they felt at that time she would grow out of it. It has been improving.Diet: appropriate diet, do esn't like milk.Water Source: city water.Elimination: normal bowel movements, normal urination and potty trained.Sleep: sleeps through the nightDaycare: NoNoteworthy social stresses: noneHistory M odules Reviewed: YesThere is no problem list on file for this patient.DEVELOPMENTAL SCREEN: Keenan rivera Concerns about Development:[facility] screening (hearing/vision):Yes - passed both.SOCIAL Board games/takes [...] Mom is getting immuni zation records from [facility]. UA ordered if never done previously.Kindergarten school form comp leted.Return in 2-3 years.Continue to work with speech therapist at school.Normal lower extremity anatomy and range of motion. Toe-walking may be habitual. Consider PT referral for stretching exerc ises if persistent or problematic. Source: [facility] RWHXTRANSXSYS Document Id: [id number] documented in this encounter Plan of Treatment Not on filedocumented as of this encounter Visit Diagnoses Not on filedocumented in this encounter
--- OUTSIDE RECORDS SUMMARY | 2022-07-20 14:51 | XMS_ITS | Encounter Summary ---
:1995 Author Organization [facility] Address [address] [place] [address] Care Team Providers Name Role Phone Unavailable Primary Care Provider Unavailable Encounter Details Date Type Department Care Team Description 04/26/2001 Hospital Encounter HX [facility] Provider, Michael العلي Social History Tobacco Use Types Packs/Day Years Used Date Smoking Tobacco: Never Assessed Sex Assigned at Date Recorded Not on file documented as of this encounter Plan of Treatment Not on filedocumented as of this encounter Visit Diagnoses Not on filedocumented in this encounter
--- OUTSIDE RECORDS SUMMARY | 2022-07-20 14:51 | XMS_ITS | Encounter Summary ---
:1995 Author Organization [facility] Address [address] [place] [address] Care Team Providers Name Role Phone Unavailable Primary Care Provider Unavailable Encounter Details Date Type Department Care Team Description 09/27/2006 Hospital Encounter [facility] Marvin Reid M.D. [address] [place], [place] [address] (Wo rk) Social History Tobacco Use Types Packs/Day Years Used Date Smoking Tobacco: Never Assessed Sex Assigned at Date Recorded Not on file documented as of this encounter Progress Notes Marvin Reid M.D. - 09/27/2006 1:30 PM CST [id number] CLINIC ENCOUNTER SUBJECTIVE: Lay is an 11-year-old [...] results are done. Elizabeth Roldan/arlene cc: Source: [facility] Document Id: [id number] Electronically signed by Conversion, [facility] Epic Trainer [id number] at 01/30/2017 6:53 AM CDT Marvin Reid M.D. - 09/27/2006 1:30 PM CST [id number] This office note has been dictated. Source: [facility]ANSXRTFSYS Document Id: [id number] Electronically signed by Conversion, [facility] Epic Trainer [id number] at 01/30/2017 6:53 AM CDT documented in this encounter Plan of Treatment Not on filedocumented as of this encounter Visit Diagnoses Not on filedocumented in this encounter
--- OUTSIDE RECORDS SUMMARY | 2022-07-20 14:51 | XMS_ITS | Encounter Summary ---
:1995 Author Organization [facility] Address [address] [place] [address] Care Team Providers Name Role Phone Unavailable [...]
== END 2022-07-20 14:49 | disposition home or self-care (01) ==
LOC: US 14:49
PROVIDERS: Visit Provider Pediatrics Neonatal-Perinatal Medicine
DX: Z34.82 Encounter for supervision of other normal pregnancy, second trimester (principal); Z3A.21 21 weeks gestation of pregnancy
CPT/HCPCS: 76816

== ENCOUNTER 2022-09-09 08:48 | Outpatient (CLI) | payer BC, SELFPAY ==
[2022-09-11 16:57] LABS: Rapid Plasma Reagin (RPR) Non Reactive (Non Reactive)
== END 2022-09-09 08:49 | disposition home or self-care (01) ==
PROVIDERS: Visit Provider Advanced Practice Midwife
DX: Z34.90 Encounter for supervision of normal pregnancy, unspecified, unspecified trimester (principal)
CPT/HCPCS: 86592

== ENCOUNTER 2022-10-07 14:08 | Outpatient (CLI) | payer BC, SELFPAY ==
--- NOTE | 2022-10-07 14:00 | CRLHL7_ITS ---
For Patients: As a result of the Century Cures Act, medical imaging exams and procedure reports are released immediately into your electronic medical record. You may view this report before your referring provider. If you have questions, please contact your health care provider. INDICATION: GROWTH, LARGE FOR DATES. ADD BPP DUE TO DECREASED MOVEMENT TECHNIQUE: Real time barnes scale imaging of the fetus was performed. COMPARISON: 07/15/2022 FINDINGS: Sonographic imaging demonstrates a single living intrauterine gestation. Fetus demonstrates a regular cardiac rate of 149 beats per minute. Fetus has a vertex position. The placenta lies anteriorly. Amniotic fluid volume appears normal and there is a single deepest pocket of 6.1 cm. The estimated weight is 2863gm which lies at the greater than 97th %. On the prior OB ultrasound dated 07/15/2022 the estimated weight was at the 48th percentile. BPD greater than 97th percentile. HC 94th percentile. AC greater than 97th percentile. FL greater than 97th percentile. The fetus was active and demonstrated normal breathing movements. There was normal flexion and extension of the trunk and extremities. Isolated prominence of the cisterna magna measuring 16 millimeters is of no significance. IMPRESSION: Normal biophysical profile score 8/8. Sonographic gestational age 36 weeks 1 day and sonographic due date 11/03/2022. Sonographic age 25 days ahead of the clinical age. Estimated weight greater than 97th percentile. AC greater than 97th percentile. Dictated by Naeem Jaeger MD @ 10/10/2022 9:20:47 AM (Electronically Signed)
== END 2022-10-07 14:09 | disposition home or self-care (01) ==
LOC: US 14:08
PROVIDERS: Visit Provider Advanced Practice Midwife
DX: O36.63X0 Maternal care for excessive fetal growth, third trimester, not applicable or unspecified (principal); O36.8130 Decreased fetal movements, third trimester, not applicable or unspecified; Z3A.36 36 weeks gestation of pregnancy
CPT/HCPCS: 76816; 76819

== ENCOUNTER 2022-11-03 12:54 | Outpatient (CLI) | payer BC, SELFPAY ==
--- NOTE | 2022-11-03 13:00 | CRLHL7_ITS ---
For Patients: As a result of the Century Cures Act, medical imaging exams and procedure reports are released immediately into your electronic medical record. You may view this report before your referring provider. If you have questions, please contact your health care provider. INDICATION: Third trimester scan, evaluate growth. Large for gestational age. COMPARISON: 10/07/2022 TECHNIQUE: Real time barnes scale imaging of the fetus was performed. FINDINGS: Sonographic imaging demonstrates a single living intrauterine gestation. Fetus demonstrates a regular cardiac rate of 147 beats per minute. Fetus has a oblique vertex position. The placenta lies anteriorly. Amniotic fluid volume appears normal and there is a single deepest vertical pocket: 4.4 cm. The estimated weight is 3540gm which lies at the 96th %. On the prior OB ultrasound exam dated 10/07/2022 the estimated weight was at the greater than 97th%. BPD 95th percentile. HC 96th percentile. AC greater than 97th percentile. FL 80th percentile. The HC/AC ratio measures 1.00 range (0.87-1.06). IMPRESSION: Sonographic gestational age 38 weeks 6 days and sonographic due date 11/11/2022. sonographic age is 17 days ahead of the clinical age. Estimated weight 96th percentile. Abdominal circumference greater than 97th percentile. Dictated by Naeem Jaeger MD @ 11/04/2022 11:54:42 AM (Electronically Signed)
== END 2022-11-03 12:55 | disposition home or self-care (01) ==
LOC: US 12:54
PROVIDERS: Visit Provider Advanced Practice Midwife
DX: O36.63X0 Maternal care for excessive fetal growth, third trimester, not applicable or unspecified (principal); Z3A.38 38 weeks gestation of pregnancy
CPT/HCPCS: 76816; 87081; 87653

== ENCOUNTER 2022-11-21 06:58 | Inpatient (IN) | payer BC, SELFPAY ==
[2022-11-21] VITALS (31 sets, daily range): BP systolic 117–141; BP diastolic 58–90; PULSE 69–106; RESP 18; TEMP 36.3–36.8; O2SAT 97–98; BMI 43.4
--- NOTE | 2022-11-21 08:17 | P.LDBA_ITS ---
Documented by User: Mckay Santana 11/21/22 08:32 Subjective History of Present Illness Date Seen: 11/21/22 Narrative: Lay is being admitted to Labor and Delivery for induction of labor for concerns of macrosomia. She is a 27 year old at 39.0weeks gestation. She has been consistently measuring large for dates, 4 weeks ahead at last visit. H&P done 11/11/22 by Dustin Anguiano CNM OB Problem list: 1. Family h/o Von Willebrand's (brother and mother) Referral to [facility] for consult, patient has not been tested 06/17/22 - was not able to get testing done through [facility]. Pt stated she has never had any symptoms and feels she may be a carrier but not have any disease herself. No history of bleeding disorder symptoms. Has taken aspirin and NSAIDs in the past with no complications. Prefers to start the 81mg aspirin now. 2. H/o Infertility (no periods) Letrozole to attain 3. BMI: >35 4. H/o anxiety & depression, no current meds, no therapy 5. Family h/o celiac disease and Freda's disease 6. Mio Cisterna Magna, resolved Level II Done, normal measurements Consider growth at [address] Rivas Rechecked at 32 weeks Isolated prominence of the cisterna magna measuring 16 millimeters is of no significance. 7. Measuring large for dates: Growth u/s - order placed, message sent to scheduling. 10/07 at 32.4wks EFW >97%, 6lb 5oz 36Wk: 96% 7 lb 13 oz 11/18/22 measuring 44 at 38 weeks. IOL recommended by Dr. Delong. Discussed via telephone after visit and patient would like to proceed. Scheduled for 11/21/2022 OB - Problem Based A/P Additional Plan (1) Encounter for induction of labor: Status: Acute (2) Large for dates fetus: Status: Acute (3) 39 weeks gestation of : Status: Acute Plan 27 yo at 39.0 weeks gestation? complicated by:?Family h/o Von Willebrand's (brother and mother), Hx of infertility, Hx of anxiety and depression, BMI >35, measuring large for dates Labor type: Induced Category 1 FHR pattern.?? GBS negative? ? PLAN:? 1. Routine intrapartum cares as ordered. 2.Cytotec for cervical ripening per protocol. 3. Monitoring per policy, continuous ? 4. Planning unmedicated . Desires water . Consent signed. Hep C negative. Candidate for analgesia of choice.?? 5. Patient encouraged to reposition and ambulate to promote physiologic labor and .? 6. Anticipate Delivery/Labor/Induction Plan Plan: induction Induction method: per misoprostol protocol OB Exam Physical Exam Vital signs: Pulse BP Pulse Ox 81 131/72 98 11/21/22 07:42 11/21/22 07:42 11/21/22 07:18 Narrative: Vitals Reviewed? Psychiatric:? Alert and oriented x3? HEENT:? Normocephalic, atraumatic? Neck:? Supple?? Lungs:? Clear to auscultation bilaterally? Heart:? Regular rate and rhythm, no murmur, rub or gallop? Abdomen:? Soft, nontender, and gravid. Vertex by Sudeep's, confirmed with cervical exam.? Extremities:? No edema or erythema Detailed Labor and Delivery Exam Patient Gravid: Yes Dilation (cm): 2 Effacement (%): 70 Cervix position: posterior Consistency: soft Cervical ripeness score: 5 Contraction Frequency: 2-5 Contraction duration (sec): 60 Tachysystole: No Contraction intensity: Mild Fetus (Single) Station: -3 Amniotic Membrane Status: intact Heart Rate Baseline: 140 Monitor Accelerations: Present Monitor Decelerations: None Retoucher Photoengraving Variability: Moderate (6-25) Documented by User: Chacha Michael CNM 11/21/22 09:47 Subjective History of Present Illness Narrative: Lay is being admitted to Labor and Delivery for induction of labor for concerns of macrosomia. She is a 27 year old at 39.0 weeks gestation. She has been consistently measuring large for dates, 4 weeks ahead at last visit. H&P done 11/11/22 by Dustin Anguiano CNM OB Problem list: 1. Family h/o Von Willebrand's (brother and mother) Referral to [facility] for consult, patient has not been tested 06/17/22 - was not able to get testing done through [facility]. Pt stated she has never had any symptoms and feels she may be a carrier but not have any disease herself. No history of bleeding disorder symptoms. Has taken aspirin and NSAIDs in the past with no complications. Prefers to start the 81mg aspirin now. 2. H/o Infertility (no periods) Letrozole to attain 3. BMI: >35 4. H/o anxiety & depression, no current meds, no therapy 5. Family h/o celiac disease and Freda's disease 6. Mio Cisterna Magna, resolved Level II Done, normal measurements Consider growth at [address] Rivas Rechecked at 32 weeks Isolated prominence of the cisterna magna measuring 16 millimeters is of no significance. 7. Measuring large for dates: Growth u/s - order placed, message sent to scheduling. US 10/07 at 32.4wks EFW >97%, 6lb 5oz 36Wk: 96% 7 lb 13 oz 11/18/22 measuring 44 at 38 weeks. IOL recommended by Dr. Delong. Discussed via telephone after visit and patient would like to proceed. Scheduled for 11/21/2022 OB - Problem Based A/P Additional Plan (1) Encounter for induction of labor: Status: Acute (2) Large for dates fetus: Status: Acute (3) 39 weeks gestation of : Status: Acute
[2022-11-21] MEDS: miSOPROStoL 25 MCG/0.25 TABLET VAGINAL ×2 (08:34→12:29)
[2022-11-21 09:03] LABS: SARS PCR* Negative SARS-CoV-2 (Negative)
[2022-11-21 17:32] LABS: Basophils Absolute Auto 0.03 K/uL (0.00-0.30); Basophils Percent Auto 0.4 % (0.0-3.0); Eosinophils Absolute Auto 0.05 K/uL (0.00-0.50); Eosinophils Percent Auto 0.7 % (0.0-7.0); Hematocrit 38.2 % (33.0-51.0); Hemoglobin* 12.5 gm/dL (12.0-16.0); Immature Granulocytes Abs Auto 0.02 K/uL (0.00-0.30); Immature Granulocytes Pct Auto 0.3 %; Lymphocytes Absolute Auto 2.73 K/uL (0.90-2.90); Lymphocytes Percent Auto 35.5 % (20-44); Mean Corpuscular HGB Conc 33 gm/dL (32-36); Mean Corpuscular Hemoglobin 26 pg (26-34); Mean Corpuscular Volume 81 fL (80-100); Monocytes Percent Auto 7.7 % (0.0-11.0); Neutrophils Absolute Auto 4.26 K/uL (1.7-7.0); Neutrophils Percent Auto 55.4 % (42.0-72.0); Platelet Count* 263 K/uL (140-440); RDW Coefficient of Variation % 13.8 % (11.5-15.5); Red Blood Count 4.73 m/uL (4.00-5.20); Slide Review Reflex No; White Blood Count* 7.68 K/uL (4.50-11.00)
[2022-11-21] MEDS: LACTATED RINGERS 1000 ML 1,000 ML 125 ML IV ×2 (17:38→21:01)
[2022-11-21] MEDS: OXYTOCIN 30 unit/500 ML in NS 30 UNIT/500 ML BAG IVPB (17:41)
[2022-11-21] MEDS: ONDANSETRON 2 MG/ML inj 4 MG IV (18:02)
--- NOTE | 2022-11-21 20:16 | PM.OBPNL ---
Subjective Time Seen by Provider: 20:00 Date Seen: 11/21/22 Narrative: Lay is coping well with labor pain/contractions. Her mom and partner are with her for support. She received 2 doses of cytotec. She requested a SVE to see where she was at, and was noted to be 4/90/-2. Options reviewed at that time and decision made to proceed with pitocin augmentation. Her ctx have been noted to be more intense since that time. She did have a variable decel, jennifer 80 lasting about 2 minutes. Since then she has also had periods of minimal variability. She would like to continue with non pharmacologic methods for comfort and pain management.?? Objective Exam: VSS, afebrile. Rare elevated BP, WNL on recheck General Appearance:? Calm, cooperative. No acute distress. ? Psychiatric Exam: Alert and oriented, appropriate affect Abdomen: Gravid Ctx: ?Q 1-3 min apart. Moderate FHTs: Baseline:140 . Variability: min - mod. Accels: yes. Decels: rare. SVE: 4/90/-2 Membranes: Intact ? Vital Signs: Last Vital Signs Temp 97.7 F 11/21/22 19:20 Pulse 75 11/21/22 19:20 Resp 18 11/21/22 18:32 BP 140/79 H 11/21/22 19:20 Pulse Ox 98 11/21/22 07:18 Plan Plan: Assessment:?? at 39.0 weeks gestation?? GBS negative Patient is coping well with challenges of labor.?? Labor type: Induced, Early labor? complicated by: Family hx of Von Willebrands, macrosomia Initial BMI over 35 Labor complicated by: Rare elevated BP periods of decreased variability, 1 decel? ? Plan:?? Continue to monitor BPs. If noted to have more frequent elevated BPs, will get preeclampsia labs Continue to monitor FHTs. Pt encouraged to change positions as needed. Continue with routine intrapartum cares as ordered.?? Patient encouraged to move and change positions to promote physiologic labor and .?? Nonpharmacologic comfort measures per patient preference. Candidate for analgesia of choice if desired. Patient planning waterbirth Anticipate progress to NVD.
[2022-11-21] MEDS: ROPIVACAINE 0.2% 100 ml 100 ML 12 MG EPIDURAL (21:27)
[2022-11-21] MEDS: LIDOCAINE 2% (PF) 5 ML VIAL EPIDURAL (21:28)
[2022-11-21] MEDS: fentaNYL 250 MCG/5 ML inj 100 MCG EPIDURAL (21:30)
--- NOTE | 2022-11-21 21:48 | P.ANBPRC_ITS ---
[facility] Medical History (Updated 11/21/22 @ 08:25 by Mckay Santana) Anxiety and depression ?F41.9 - Anxiety disorder, unspecified (ICD-10) ?F32.A - Depression, unspecified (ICD-10) Large for dates fetus Surgical History [place] teeth extracted ?K08.409 - Partial loss of teeth, unspecified cause, unspecified class (ICD- 10) Family History Mother Blood disorder Macrosomia Celiac disease Freda's disease Brother Blood disorder Father Heart attack Diabetes High blood pressure Paternal Grandmother High blood pressure Social History (Updated 04/19/22 @ 15:44 by Patricia Pavon CNM) Narrative: SOCIAL Education: 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 Smoked for about 10 years about a pack a week, just socially recently. Alcohol/day: Denies while Caffeine: not really Drug Use: Denies past/present Chicken Pox: Yes as a child MRSA: Denies Smoking Status: Former smoker Little interest or pleasure in doing things: not at all Feeling down, depressed, or hopeless: not at all Meds Home Medications and Allergies Home Medications Medication Instructions Recorded Confirmed Type prenat.vits,patricia,nbu-ohyl-uhyxn 1 tab PO QDAY 04/19/22 11/21/22 History aspirin 81 mg chewable tablet 81 mg PO DAILY 11/21/22 11/21/22 History Allergies Allergy/AdvReac Type Severity Reaction Status Date / Time adhesive tape Allergy Verified 11/21/22 07:26 Results Labs Labs: Laboratory Results - last 24 hr 11/21/22 11/21/22 08:06 17:24 WBC 7.68 RBC 4.73 Hgb 12.5 Hct 38.2 MCV 81 MCH 26 MCHC 33 RDW Coeff of Leroy 13.8 Plt Count 263 Neut % (Auto) 55.4 Lymph % (Auto) 35.5 [place] % (Auto) 7.7 Eos % (Auto) 0.7 Baso % (Auto) 0.4 Neut # (Auto) 4.26 Lymph # (Auto) 2.73 [place] # (Auto) 0.60 Eos # (Auto) 0.05 Baso # (Auto) 0.03 SARS-CoV-2 (PCR) Negative SARS-CoV-2 Blood Type O Positive Antibody Screen NEGATIVE Vital Signs Vital Signs: Last Vital Signs Temp 97.4 F L 11/21/22 20:50 Pulse 93 11/21/22 21:47 Resp 18 11/21/22 18:32 BP 123/81 11/21/22 21:47 Pulse Ox 97 11/21/22 21:46 Weight: 111.266 kg Height: 160.02 cm Anesthesia Procedures Epidural Insertion Patient Location: OB Start Time: 20:30 Stop Time: 21:30 Start Date: 11/21/22 Stop Date: 11/21/22 Reason for Block: primary anesthetic Patient Position: sitting Performed By: Buck Mckenna Preanesthetic Checklist: IV checked, risks and benefits discussed, pre-op evaluation and anesthesia consent Prep: chlorhexidine gluconate Monitoring: blood pressure monitoring and continuous pulse oximetry Approach: midline Vertebral Space: lumbar (1-5) Epidural Technique: RICARDO saline Needle Type: Tuohy needle Injection Technique: continuous catheter Needle gauge: 17 Needle Length (cm): 10 cm Needle Insertion Depth (cm): 8 Catheter Gauge: 19 Catheter Type: multi-orifice Catheter at skin depth (cm): 12 Test Dose Result: negative and lidocaine 1.5% with epinephrine 1 to 200,000
--- NOTE | 2022-11-21 21:52 | SUR.ANES ---
Discussed in depth the risk of placing epidural since no testing was done for Von Willebrand's. Spoke with mom - trying to get info about the type of VWD she has. She does not know. Patient wishes to proceed with EWELINA. Consulted with anesthesiologist.
[2022-11-21 23:18] LABS: Prothrombin Time 12.7 Seconds
[2022-11-21 23:19] LABS: Partial Thromboplastin Time* 26 Seconds (23-33)
[2022-11-21 23:21] LABS: Fibrinogen* 387 mg/dL (200-450)
[2022-11-22] VITALS (47 sets, daily range): BP systolic 109–193; BP diastolic 57–107; PULSE 66–118; RESP 16–20; TEMP 36.8–37.2; O2SAT 96–99
[2022-11-22] MEDS: CALCIUM CARBONATE 500 MG CHEW PO (00:58)
[2022-11-22] MEDS: LACTATED RINGERS 1000 ML 1,000 ML 125 ML IV (02:06)
--- NOTE | 2022-11-22 02:50 | PM.OBPNL ---
Documented by User: Mckay Santana 11/22/22 03:10 Subjective Date Seen: 11/22/22 Narrative: Lay was complete around 5, she labored down for approximately 2 hours and then began pushing. She had pushed well with good effort in multiple positions including side lying, semifowlers and hands and knees. After 2 hours of pushing the head remains at zero station. Patient has been coping well with pushing her partner and mother have been present and supportive. heart tones have had minimal variability periodically during the pushing stage, good response to scalp stimulation. Variability improved in hands and knees position but returned to minimal once position changed. After discussing her progress with the patient, Dr. Delong was called to evaluate the patient for a C/S. IV Pitocin turn off. Objective Exam: Constitutional: Alert and oriented x3, moderate distress, coping well? Vital signs stable, see nurse documentation?? Abdomen: gravid, contractions palpate strong with contractions and soft between Vital Signs: Last Vital Signs Temp 97.4 F L 11/21/22 20:50 Pulse 96 11/22/22 02:36 Resp 18 11/21/22 18:32 BP 118/61 11/22/22 02:36 Pulse Ox 97 11/21/22 21:46 Pelvic Exam Dilation (cm): 10 Effacement (%): 100 Station: 0 Contractions Monitor mode: External Contraction Frequency: 3-5 Contraction pattern: Regular Contraction intensity: Strong/Firm Assessment Assessment: induction ongoing Station: 0 Amniotic Membrane Status: SROM Status: Category ll Heart Rate Baseline: 135 Skilled Nursing Variability: Minimal (3-5) Monitor Accelerations: Present Monitor Decelerations: Variable Plan Plan: Assessment:?? at 39.0 weeks gestation?? GBS negative Patient is coping well with challenges of labor.?? Labor type: Induced, Active labor? complicated by: Family hx of Von Willebrands, macrosomia Initial BMI over 35 Labor complicated by: Rare elevated BP periods of decreased variability, occasional variable decels 2 hours of pushing with no decent ? Plan:? Consult with OB for C/S Pt given option to continue to push or stop, preference for stopping, Pitocin turned off Documented by User: Chachaelsa Michael, [facility] 11/22/22 03:18 Subjective Narrative: Lay was complete around 2245, she labored down for approximately 2 hours and then began pushing. She had pushed well with good effort in multiple positions including side lying, semifowlers and hands and knees. After 2 hours of pushing the head remains at zero station. Her pitocin was increased multiple times during pushing. Patient has been coping well with pushing her partner and mother have been present and supportive. heart tones have had minimal variability periodically during the pushing stage, good response to scalp stimulation. Variability improved in hands and knees position but returned to minimal once position changed. After discussing her progress with the patient, Dr. Delong was called to evaluate the patient for a C/S. IV Pitocin turn off. Plan Plan: Assessment:?? at 39.0 weeks gestation?? GBS negative Patient is coping well with challenges of labor.?? Labor type: Induced, Active labor? complicated by: Family hx of Von Willebrands, macrosomia Initial BMI over 35 Labor complicated by: Rare elevated BP periods of decreased variability, occasional variable decels 2 hours of pushing with no decent Possible meconium stained fluid ? Plan:? Consult with OB for C/S Pt given option to continue to push or stop, preference for stopping, Pitocin turned off
--- NOTE | 2022-11-22 03:29 | PM.OBCN1 ---
OB - CN: HPI Date of Consult Time Seen by Provider: 03:29 Date Seen: 11/22/22 Patient: [facility] Patient Consult date: 11/22/22 Requesting Physician: Chacha Michael CNM Primary Care Provider: Not a Local Provider Consult Narrative Reason for consult: arrest of labor Narrative: The patient is a 27 year old G 2 P 0010 at 39w1d gestation that was admitted to the [facility] on 11/21/22 for elective IOL with suspected macrosomia. I was consulted on this patient early in night due to anesthesiology's concern about patient's family history of Von Willebrand's (brother and mother). Patient was referred to [facility] for workup but she is unable to say what the result of the work up was. She does not know if she has von Willebrand's or not. At the point that I was consulted, patient was close to complete cervical dilation. Given that patient has a strong family history and patient's unknown status, I recommended to draw coags, type and cross for 2 u of pRBC (as patient is high risk for obstetrical hemorrhage independent of her von Willebrand's status), have lab thaw and have cryoprecipitate readily available, FFP on stand by as well. Additionally, to give 1g of TXA approximately 30 mintues prior to delivery and 1 g of TXA after delivery. I was consulted again at 0300 due to arrest of second stage. Per midwifery note, patient was complete around 2245. She labored down for approximately 2 hours and then began pushing with good effort for two hours with no descent. When I spoke to the patient, she appears exhausted and frustrated. She wishes to proceed with delivery as she can't push anymore. History History 2 Elective abortions 0 Para 0 Spontaneous abortions 1 Hx # Term Pregnancies 0 Ectopic pregnancies Hx # Pregnancies 0 Multiple births Number of Living Children 0 Past Pregnancies Del. Date GA/Weeks Outcome Route wt Inf Gender Labor Lgth Anesthesia Location Provider Compli 12/10/21 5 spontaneous Labs OB Labs: Lab Assessment Start: 11/21/22 07:24 Freq: ONCE Status: Complete Protocol: PC.OBGBS Activity Type Activity Date Activity User E-sign Co-sign Detail Recorded Client Recorded Date Recorded By Document 11/21/22 07:47 JERAMIE [id number] 11/21/22 07:47 AJS 11/21/22 07:47 Lab Assessment GBS neg Previous with Invasive GBS No Does Patient Meet Criteria No No Treatment Needed OK Maternal Blood Type O Maternal RH Factor Positive Evaluate Maternal Rubella Immune Status Immune Hepatitis B Surface Antigen Negative Maternal HIV Status Negative Maternal Syphillis (RPR) Status Negative Are Labs Available Yes PFSH PFS Medical History (Updated 11/21/22 @ 08:25 by Mckay Santana) Anxiety and depression ?F41.9 - Anxiety disorder, unspecified (ICD-10) ?F32.A - Depression, unspecified (ICD-10) Large for dates fetus Surgical History [place] teeth extracted ?K08.409 - Partial loss of teeth, unspecified cause, unspecified class (ICD-10) Family History Mother Blood disorder Macrosomia Celiac disease Freda's disease Brother Blood disorder Father Heart attack Diabetes High blood pressure Paternal Grandmother High blood pressure Social History (Updated 04/19/22 @ 15:44 by Patricia Pavon CNM) Narrative: SOCIAL 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 Smoked for about 10 years about a pack a week, just socially recently. Alcohol/day: Denies while Caffeine: not really Drug Use: Denies past/present Chicken Pox: Yes as a child MRSA: Denies Smoking Status: Former smoker Little interest or pleasure in doing things: not at all Feeling down, depressed, or hopeless: not at all Meds Home Medications and Allergies Home Medications Medication Instructions Recorded Confirmed Type prenat.vits,patricia,gpc-ukog-lptao 1 tab PO QDAY 04/19/22 11/21/22 History aspirin 81 mg chewable tablet 81 mg PO DAILY 11/21/22 11/21/22 History Allergies Allergy/AdvReac Type Severity Reaction Status Date / Time adhesive tape Allergy Verified 11/21/22 07:26 OB - H&P: Exam Physical Exam: Vital signs: Temp Pulse Resp BP Pulse Ox 98.4 F 106 H 18 145/85 H 97 11/22/22 02:21 11/22/22 03:28 11/21/22 18:32 11/22/22 03:28 11/21/22 21:46 Narrative: Physical exam: General: Fatigued Psych: Alert and oriented x3, full affect HEENT: Normocephalic, atraumatic Lungs: Unlabored breathing Neuro: No focal deficit. Mentating appropriately Pelvic exam: Deferred to OR OB - Results Labs Labs: Short CBC 11/21/22 Range/Units 17:24 WBC 7.68 (4.50-11.00) K/uL Hgb 12.5 (12.0-16.0) gm/dL Hct 38.2 (33.0-51.0) % Plt Count 263 (140-440) K/uL OB - CN: A/P Assessment and Plan (1) Encounter for induction of labor: Status: Acute (2) Large for dates fetus: Status: Acute (3) 39 weeks gestation of : Status: Acute Plan - CS Consent The patient was consented for section and blood. She understands that the three main categories of risk include bleeding, infection, and damage to surrounding structures. Regarding infection, she understands that we will be delivering appropriate antibiotics (ancef and azithromycin), however that the risk of infection following section still is approximately 5%. She understands that though the risk is very low that there is always a risk of damage to the bladder, uterus, ovaries, fallopian tubes, bowels, ureters, or even the fetus. She understands that most injuries can be addressed at the time of surgery, however, such an injury may require additional surgeries to fix. Lastly, she understands that a section carries a risk of bleeding, and that while this bleeding can be addressed with multiple medical and surgical modalities, that there is the possibility of needing a blood transfusion. We discussed her specific risk of hemorrhage being over distended uterus, labor dystocia, head impacted in pelvis, and possible bleeding disorder. She reports she would accept a blood transfusion understanding the risks of a 1/200,000 risk of Hepatitis and 1/2,000,000 risk of HIV as well as the risk of having an allergic reaction to the blood products. She further understands that this reaction is typically mild, however can be severe including respiratory distress and necessitating ICU-level care. Lastly, she understands that a section does increase risks for future pregnancies and deliveries including, but not limited to, the risk of uterine rupture or placenta accreta. Patient verbalized understanding and all questions were answered to patient's satisfaction. - Hgb 12.5, plt 263 - Coag overall normal - OR team notified. Will proceed with primary delivery.
[2022-11-22] MEDS: TRANEXAMIC ACID 100 MG/ML INJ 1000 MG IV (03:55)
[2022-11-22] MEDS: CEFAZOLIN 2 GM INJ IVP (04:00)
[2022-11-22] MEDS: AZITHROMYCIN 500 MG in 0.9 % SODIUM CHLORIDE 250 ml 250 ML 255 MG IVPB (04:10)
--- NOTE | 2022-11-22 05:41 | PM.OBPRCCS ---
Procedure Pre-op/Post-op diagnoses: Pre-Op/Post-Op Diagnoses Operation Date: 11/22/22 04:15 <No data on this case meets the specified criteria> Procedure Done: Global Procedure Details: Procedures Operation Date: 11/22/22 04:15 Actual Procedure Side Surgeon p Section Sonya Delong MD Disposition: floor Anesthesia type: Epidural Narrative: DELIVERY BY SECTION Date of Service: 11/23/2019 Delivery time: 0421 Summary: Admitted for elective induction of labor at 39 weeks with additional concerns of macrosomia. Sterile cervical exam in the OR showed patient is 10/100/0. Significant caput noted and impacted in canal. Vaginal hand was used to disimpact the head performed prior to delivery. Of note, RNs reports significant difficulty with lombardi catheter placement and required 3 attempts. With the insertion of lombardi cath, 75cc of dark red urine was expressed. Surgery summary: Primary Lower uterine transverse section, Pfannenstiel, Closed with sutures, QBL 1050 cc, no complications, Findings: Fetus was OP with right sided asynclitism, thick meconium, and nuchal cord x 1. Normal uterus and bilateral ovaries. 1.5 cm paratubal cyst noted on left fallopian tube toward the fimbria. Normal right fallopian tube. 7, 8, weight 3575g. Primary Indication: Arrest of second stage of labor Procedures: Primary Lower uterine transverse section Specimens Removed: Placenta Surgeon: Sonya Delong MD Crutch Maker Surgeon: None Anesthesia: Epidural and tap block Report: Prophylactic antibiotic, 2 g of Ancef and 500 mg of azithromycin was given before patient was taken to OR. 1g of TXA was given prior to incision time as well. After arrival to the operating room patient was placed in the supine position with left lateral tilt after dosing of epidural anesthesia. Laparotomy A pfannenstiel incision was made through the anterior abdominal wall with #10 scalpel approximately 2 cm above the pubic symphysis. The incision was extended sharply with the #10 scalpel through the subcutaneous tissue to the level of fascia. The fascia was entered sharply with a #10 scalpel (Pfannenstiel) in the midline and extended in semi-elliptical fashion bluntly with digits. The fascia was further from rectus muscle with Wheeler scissor and/or cautery. In similar fashion, the lower aspect of fascia was also grasped with two Cassandra clamps and both blunt and sharp dissection was used to separate fascia from rectus muscle. The rectus muscles were in the midline bluntly with digits. The peritoneum was then entered bluntly. The peritoneal incision was then extended superiorly and inferiorly under direct visualization with care being taken to avoid bladder and bowel. No adhesions were noted. The peritoneal incision was enlarged bluntly by lateral traction from the surgeon's and veterinary technician assistant's hand. Joe retractor was inserted into the abdomen. Unfortunately, the first Joe retractor broke so that was removed and a new one was placed. Delivery A bladder flap was not developed as bladder was low and far away from uterine incision. A low transverse hysterotomy was made then with #10 scalpel and extended laterally and cephalad with fingers in a low transverse fashion with Manu Acuna technique with care being taken to avoid injury to the fetus. Very thick meconium fluid was expressed upon entry into the uterine cavity. face was noted to be presenting at hysterotomy. Fetus was asynclitic to the right pelvic sidewall. Fetus was delivered cephalic. With delivery of the baby, no extension was noted. Placenta was delivered spontaneously with steady traction on cord and manual separation of placenta from uterine wall. Several large bleeding vessels noted at uterine hysterotomy. Right forceps were placed on bleeding vessels for temporary hemostasis. Closure Uterine cavity was cleaned after placental delivery with lap sponge x 2. The hysterotomy was closed in one layer with stitches using 0 vicryl with continuous locking stitches. An imbricating layer was placed with 0 Monocryl due to bleeding edge at hysterotomy. One figure of 8 placed at the middle of the hysterotomy. Hemostasis was achieved as needed with electrocautery. The ovaries/tubes/uterine surface were evaluated and findings were noted as above. Fascia was closed with running stitches using 0 vicryl from both fascial angle and meeting in the middle. Hemostasis was checked for and found to be adequate. The subcutaneous layer was closed with running 2-0 chromic sutures. The skin was closed with 4-0 vicryl subcuticular sutures . The incision was cleaned and covered with exofin and mepilex dressing. Intraoperative Complications: Intraoperative hemorrhage from large bleeding vessels at they hysterotomy QBL: 1050 cc Uterotonics: 40 u of pitocin, 1g of TXA x 2. Disposition: The patient tolerated the procedure well. She was recovered in Obstetric PACU for close monitoring in stable condition, with a contracted uterus and normal transvaginal bleeding. The infant was sent to mother?s bedside/PACU. The placenta was not sent to pathology.
--- NOTE | 2022-11-22 05:45 | P.NB_ITS ---
Nerve Block Nerve Block Time Seen by Provider: 05:20 Date Seen: 11/22/22 Type of block requested by surgeon for post-operative analgesia: TAP Side: bilateral Time out performed: Yes Verification of patient name: Yes Verification of date of : Yes Name of person performing procedure: ap Continuous monitoring Was continuous monitoring of O2 sat, B/P, manager performance improvement, recorded every 15 minutes?: Yes Procedure Checklist: sterile prep, needles and gloves Ultrasound guided. Images saved: Yes Medications given in 5ml increments after negative aspiration: Marcaine %: 0.25 mL: 30 Needle gauge: 20 and Exparel mL: 10 Patient tolerated procedure well: Yes Block Charges Block Charge (with Pro Fee): TAP Bilateral Use of Ultrasound Machine for Block: Yes- US Guidance/pain block
--- NOTE | 2022-11-22 05:47 | P.ANES_ITS ---
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
--- NOTE | 2022-11-22 05:48 | SUR.PHASEI ---
Bahena cath present when patient arrived into OR5. Patient was having bloody urine. 300 cc output at end of case of red urine. Dr. Delong notified and reported continue to monitor.
[2022-11-22] MEDS: LACTATED RINGERS 1000 ML 1,000 ML 35 ML IV (07:51)
[2022-11-22] MEDS: KETOROLAC 30 MG/ML inj IVP ×3 (11:06→23:13)
[2022-11-22] MEDS: ONDANSETRON 2 MG/ML inj 4 MG IVP (11:07)
[2022-11-22] MEDS: ENOXAPARIN 40 MG/0.4 ML INJ SUBCUT (17:53)
[2022-11-23] VITALS (8 sets, daily range): BP systolic 109–133; BP diastolic 64–85; PULSE 84–102; RESP 16; TEMP 36.7–36.8; O2SAT 95–97
[2022-11-23] MEDS: KETOROLAC 30 MG/ML inj IVP ×2 (06:07→12:55)
[2022-11-23 06:56] LABS: Hemoglobin* 8.7 gm/dL (12.0-16.0)
--- NOTE | 2022-11-23 07:29 | P.OBPN_ITS ---
OB - PN: A/P Assessment and Plan (1) Encounter for induction of labor: Status: Acute (2) Large for dates fetus: Status: Acute (3) 39 weeks gestation of : Status: Acute Plan Plan: routine postop care Comments: Assessment/Plan G 2 P 1 status post uncomplicated primary . 1. ?Continue route PP cares 2. ?. ?May see if desired 3. ?Anticipate discharge home tomorrow or the following day per pt preference 4. ?Acute anemia. ?Iron supplement ordered OB - PN: Subj Subjective Time Seen by Provider: : Date Seen: 11/23/22 Interval history: Lay is a 27 y.o. who was admitted to [facility] for IOL for macrosomia. ?She had an uncomplicated . ? Patient comments: no complaints, pain well controlled, tolerating diet and flatus present status: and doing well [place] feeding status: exclusively Narrative: The patient feels well. ?The pain is well controlled with current medications. ?She has no new complaints. ?She is breast feeding and reports things are a bit of a struggle with latch and getting baby to suck.? the patient has done well.? Vitals have been stable.? She has remained afebrile.? Has a good appetite, is tolerating a general diet. ?She is voiding without difficulty.? She is passing gas and has not had a bowel movement.? She is ambulating and denies any dizziness.? Has Small amount of rubra lochia. OB - PN: Obj Exam Physical Exam: Vital signs: Temp Pulse Resp BP Pulse Ox O2 Del Method 98.2 F 102 H 16 109/64 95 Room Air 11/22/22 19:38 11/23/22 00:23 11/23/22 05:04 11/23/22 00:23 11/23/22 00:23 11/23/22 00:23 Narrative: VSS. Afebrile GENERAL APPEARANCE: ?normal affect, alert, no distress MOOD: ?appropriate HEENT: normocephalic, neck supple, full ROM CHEST: ?Symmetrical chest wall movement. ?Normal respiratory effort. ?Clear to auscultation HEART: ?regular rate and rhythm ABDOMEN: ?soft, non-tender. Uterine fundus is firm, a Umbilicus, Midline and is appropriate for the stage of recovery. ?Bowel sounds present. EXTREMITIES: ?normal and +1 edema SKIN: warm, dry. Dressing on, clean/dry/intact. No signs of infection noted. OB - PN: Obj Data Labs Labs: Laboratory Results - last 24 hr 11/23/22 06:50 Hgb 8.7 L
[2022-11-23] MEDS: DOCUSATE SODIUM 100 MG CAPSULE PO (08:48)
[2022-11-23] MEDS: FERROUS SULFATE 325 MG TABLET PO (08:49)
[2022-11-23] MEDS: SIMETHICONE 80 MG TAB.CHEW PO (08:49)
[2022-11-23 13:24] LABS: Hematocrit 29.4 % (33.0-51.0); Hemoglobin* 9.4 gm/dL (12.0-16.0); Mean Corpuscular HGB Conc 32 gm/dL (32-36); Mean Corpuscular Hemoglobin 27 pg (26-34); Mean Corpuscular Volume 84 fL (80-100); Platelet Count* 208 K/uL (140-440); Red Blood Count 3.51 m/uL (4.00-5.20); White Blood Count* 9.87 K/uL (4.50-11.00)
[2022-11-23 13:25] LABS: Slide Review Reflex No
[2022-11-23 13:34] LABS: Blood Urea Nitrogen* 14 mg/dL (5-24); Creatinine* 0.9 mg/dL (0.5-1.5); Est. Creatinine Clearance* 77.67; Estimated Glomerular Filt Rate 90 ml/min
[2022-11-23 13:35] LABS: Alanine Aminotransferase* 14 U/L (4-35); Aspartate Amino Transferase* 40 U/L (12-35)
[2022-11-23] MEDS: ACETAMINOPHEN 500 MG TABLET 1000 MG PO (16:13)
[2022-11-24] VITALS: BP 129/80; PULSE 87; RESP 16; TEMP 36.6; O2SAT 96
[2022-11-24 04:00] VITALS: BP 133/85; PULSE 85; RESP 16; TEMP 36.6; O2SAT 97
[2022-11-24 07:52] VITALS: BP 133/78; PULSE 78; RESP 16; TEMP 36.9; O2SAT 96
--- NOTE | 2022-11-24 08:07 | P.DS_ITS ---
DS: Providers Provider Date Seen: 11/24/22 Date of admission: 11/21/22 06:58 Primary care physician: Not a Local Provider Admitting Clinician: Sarai Wagner CNM Attending Physician on discharge: MANUEL Diez with supervision by Sarai Wagner CNM Date of Discharge: 11/24/22 DS: Diagnosis Discharge Diagnosis (1) Encounter for care and examination of mother immediately after delivery: Status: Acute (2) Lactating mother: Status: Acute (3) Status post delivery: Status: Acute Exam Narrative: Exam Narrative: GENERAL APPEARANCE:? normal affect, alert, no distress? MOOD:? appropriate? CHEST:? clear to auscultation? HEART:? regular rate and rhythm? ABDOMEN:? soft, non-tender the uterine fundus is firm At Umbilicus, Midline and is appropriate for the stage of recovery.? INCISION: silver nitrate dressing clean dry and intact EXTREMITIES:? normal and +2 edema Const: Vital Signs, click to edit/add: Vital Signs - 24 hr 11/23/22 08:37 11/23/22 16:10 11/23/22 20:00 Temperature 98.2 F 98.2 F 98.1 F Pulse Rate [Pulse Oximeter] 88 87 84 Respiratory Rate 16 16 16 Blood Pressure [Ri ght Arm] 131/72 128/79 133/85 Pulse Oximetry 96 96 97 Oxygen Delivery Me thod Room Air Room Air Room Air 11/24/22 00:00 11/24/22 04:00 11/24/22 07:52 Temperature 97.8 F 97.9 F 98.4 F Pulse Rate [Pulse Oximeter] 87 85 78 Respiratory Rate 16 16 16 Blood Pressure [Ri ght Arm] 129/80 133/85 133/78 Pulse Oximetry 96 97 96 Oxygen Delivery Me thod Room Air Room Air Room Air Documenting provider has reviewed patient's vital signs: yes DS: Data Data Completed and Pending Labs on day of discharge: Labs from last 24 hours 11/23/22 12:54 WBC 9.87 RBC 3.51 L Hgb 9.4 L Hct 29.4 L MCV 84 MCH 27 MCHC 32 Plt Count 208 BUN 14 Creatinine 0.9 Estimated Creat Clear 77.67 Estimated GFR 90 AST 40 H ALT 14 OB - DS: Summary Hospital Course Hospital Course: Lay is a 27 year old G 2 P 1 at 39.0 weeks gestation that was admitted to the Center on 11/21/22 for induction of labor for measuring large for dates, suspected macrosomia. She had an uncomplicated delivery after 2 hours of pushing without decent. She delivered a viable male infant. She is breast feeding. the patient has done well. The patient feels well.? The pain is well controlled with current medications.? She has no new complaints.? Urinary output is adequate and she is voiding without difficulty.? Has a good ap petite, is tolerating a general diet, is passing flatus, and has had a bowel movement.? Has scant amount of rubra lochia.? She is ambulating well. She is and reports it is going well. Plans to do a non-hormonal option for control. Peripartum Data Procedures: Procedures Operation Date: 11/22/22 04:15 Actual Procedure Side Surgeon p Section Sonya Delong MD complications: none [place] Gender: Male Infant Discharge Plan: Home Status at Discharge Functional status at discharge: independent ambulation Overall status at discharge: patient is progressing back to baseline Time Spent with Patient Time attestation: Total time spent providing and/or coordinating discharge services: Time spent: Less than 30 minutes Discharge Plan Discharge Disposition: Home, Self-Care Date of Admission: 11/21/22 06:58 Attending Provider on Discharge: Sarai Wagner Primary Care Provider: Provider,Not a Local Condition: Stable Anticipated Discharge Date/Time: 11/24/22 12:00 Discharge Medications: New acetaminophen 500 mg Tablet 1,000 mg PO Q6H PRN (Reason: pain/fever) Qty: 0 0RF ferrous sulfate 325 mg (65 mg iron) Tablet 325 mg PO DAILYWM Qty: 90 0RF docusate sodium 100 mg Capsule 100 mg PO DAILY Qty: 90 1RF ibuprofen 600 mg Tablet 600 mg PO Q6H PRN (Reason: Pain) Qty: 60 0RF oxycodone 5 mg Tablet 5 - 10 mg PO Q4H PRN (Reason: Pain) Qty: 5 0RF Continued prenat.vits,patricia,[id number] Tablet 1 tab PO QDAY Discontinued aspirin 81 mg tablet,chewable 81 mg PO DAILY Discharge Orders: Discharge Order (Routine); Ordered 11/24/22 Ordered By: Sarai Wagner Patient Education: OB Over the Counter Medication Information, OB /Breast Feeding Additional Instructions: Discharge instructions were reviewed with the patient including signs and symptoms of infection and home going medications Lifting Restrictions: 20 pounds for 6 weeks No not submerge incision under water X 2 weeks? Nothing vaginally for 6 weeks: no tampons or intercourse Do not drive while taking narcotic pain medication(s) Off Work or School for 8 weeks 1-week visit: incision check and dressing removal, discuss infant feeding concerns, review control options and screen for anxiety/depression. 6-week visit for an annual exam. consultation services are available to all mothers and babies for the first year after delivery.? To make an appointment, please call [phone]. Activity Level: Activity as Tolerated Discharge Diet: Regular Follow Up Appointments: [facility] [Provider Group] (1 week for dressing removal and incision check; 6 week for well woman exam) Forms: [employer] Info Instructions
[2022-11-24] MEDS: FERROUS SULFATE 325 MG TABLET PO (08:33)
[2022-11-24] MEDS: DOCUSATE SODIUM 100 MG CAPSULE PO (08:33)
--- NOTE | 2022-11-24 17:02 | PC.NURSE ---
RN gave pt discharge instructions when going home. RN went over instructions with pt about a possible spinal hematoma from the epidural with the pts pending Von Willebrand diagnosis. RN informed the pt to watch for signs and symptoms of numbness or tingling of legs, weakness, difficulty walking, loss of bowel or bladder control or paralysis. RN informed the pt that if she shows any of these s/s to call 911 immediately and inform them that she had a section and an epidural on 11/22 and that she possibly has von willebrands. RN informed the pt that if she has any of these s/s time is important. She would need neuro surgery in 6 hours to correct the issue. Pt verbalized understanding of education to RN.
[2022-11-25 22:31] LABS: von WillebrandFactorAntigen 410 % (52-214); vonWillebrandFactorActivityRCF 381 % (51-215)
== END 2022-11-24 13:24 | disposition home or self-care (01) | DRG 540 ==
PROVIDERS: Advanced Practice Midwife; Obstetrics & Gynecology; Admitting Provider Advanced Practice Midwife; Visit Provider Advanced Practice Midwife
PROC: (CPT 59514; principal; 2022-11-22 04:00)
DX: O36.63X0 Maternal care for excessive fetal growth, third trimester, not applicable or unspecified (principal); O77.0 Labor and delivery complicated by meconium in amniotic fluid; Z83.2 Family history of diseases of the blood and blood-forming organs and certain disorders involving the immune mechanism; O66.2 Obstructed labor due to unusually large fetus; O67.8 Other intrapartum hemorrhage; O90.81 Anemia of the puerperium; D62 Acute posthemorrhagic anemia; Z3A.39 39 weeks gestation of pregnancy; Z37.0 Single live birth
CPT/HCPCS: 01967; 01968; 36415; 59200; 76942; 82565; 84450; 84460; 84520; 85018; 85025; 85027; 85240; 85245; 85246; 85384; 85610; 85730; 86850; 86900; 86901; 86922; 87635; 99140; A9270; C9290; J0456; J0690; J1100; J1650; J1885; J2250; J2274; J2370; J2405; J2590; J2765; J2795; J3010; J3490; J7050; J7120

== ENCOUNTER 2022-11-30 09:25 | Outpatient (CLI) | payer BC, SELFPAY ==
--- NOTE | 2022-12-16 14:35 | W.PM.LAC.MC ---
Consult Note - Mom Date of Visit Date of visit: 11/30/22 trousseau consultant: Laura Valladares Visit Code: Visit Patient's Information Phone number: [phone] : 2 Para: 1 Allergies adhesive tape Allergy (Verified 11/29/22 10:23) Mother's Medical History: Medical History (Updated 12/02/22 @ 00:00 by ) Anxiety and depression ?F41.9 - Anxiety disorder, unspecified (ICD-10) ?F32.A - Depression, unspecified (ICD-10) Delivery Information Delivery type: Primary C/S; Labored Weeks Gestation: 39.1 Gestational Age: AGA Weight: 3.575 kg Discharge Weight: 3.328 kg Baby's Information Baby's Age at Visit: 7 days Baby's Provider or Clinic: Dr. Ramos Reason for Consult Reason for Consult: difficulty latching without a nipple shield Past Experience Past Experience: No Current Frequency of Day Feedings: every 2 - 3 hours around the clock Both Breasts: No Suck: strong Latch: wide Length of Time: about 30 minutes Goals: wants to wean from the nipple shield Pumping Pumping: Yes (pumps from vickie side baby doesn't nurse from) Quantity Pumped: about 1 oz total each time Supplementing EMB Supplement: No (baby hasn't had a bottle of EBM/formula for the past 3 days) Formula Supplement: No Baby Elimination Number of Wet Diapers a Day: about 8 Number of BM a Day: about 3; yellow and seedy Breast/Nipple Condition Breast Information: WNL Engorgement: No Maternal Nipple Condition - Left: Common Nipple Maternal Nipple Condition - Right: Common Nipple Sore Nipples: No Onsite Pre-Feed weight: 3.434 kg Post-Feed weight: 3.508 kg Milk Transferred (mL): 74 Pre-Nursing Left Nipple: Within Normal Limits Pre-Nursing Right Nipple: Within Normal Limits Post-Nursing Left Nipple: Within Normal Limits Post-Nursing Right Nipple: Within Normal Limits Assessments/Interventions Assessments/Interventions: Assessments/Interventions: Met with mom and this now 7 day old ex- term AGA baby for consult.? Mom reports when they came in on 11/26 for a weight check she was having a lot of trouble getting baby to latch and was given a nipple shield.? Since then she's been able to nurse baby successfully with each feeding and has even been able to nurse him without it on the left side a few times.? Baby is nursing every 2 - 3 hours for about 30 minutes.? Before being given the shield, mom was pumping and offering either EBM or formula but states baby hasn't had a bottle for the past three days.? She's still pumping the side baby doesn't nurse from and gets about 1 oz total each time.? Breasts WNL- symmetrical with rounded lower quadrants, intramammary distance is < 1.5 inches.? Mom with a hx of bilateral nipple piercings, she thinks the right side has nerve damage and that's why it's difficult for baby to nurse on that side.? Nipples are everted and don't flatten or retract with compression; no damage noted. Baby has gained 23 grams/day since his visit on 11/26 and is 4% below BW at 7 DOL.? Per POC he was brooke side up at delivery and had difficulty with equal ROM when turning his head for the first few days; they state this has since resolved.? They deny any caput or cephalohematoma.? Baby's upper lip is a little difficult to flange, but no blanching of the gums and the upper frenulum isn't thick.? His palate is WNL.? Hi has a strong suck on a finger, the tongue cups around the finger and extend past the gum line; it does however canoe when moving laterally.? The lower frenulum is WNL. Mom wanted to try latching baby without the shield on the right and she was able to do it on the first attempt!? She had baby in an excellent position and the latch looked wide, mom was comfortable and felt baby pulling/drawing her breast in.? Baby needed some stimulation but nursed about 10 minutes.? Mom was encouraged to offer the left side and she was again able to latch him on the first attempt without the shield.? He nursed another 10 - 15 minutes transferring 74 ml. Plan: 1. Continue to nurse baby ALD (don't go over 3 hours during the day or 4 hours at night for now).? Suggested she offer both sides each time and practice without the shield.? Encouraged her that some feedings will go well and at others she may need to go back to the shield, this is normal. 2. Suggested she pump or use her [place] if she still feels uncomfortable after baby has finished, but only pump/express to comfort. 3. OK to pump to empty 1 - 2 times/day if desired, but not necessary. 4. Suggested POC refrain from bottle feeding for the next few weeks so that baby can really become accustomed to .? 5. Will f/u for a circumcision visit and in for a one month pre and post feeding weight check.? POC declined information on local body work therapists. Meds Home Medications and Allergies Home Medications Medication Instructions Recorded Confirmed Type prenat.vits,patricia,[id number] 1 tab PO QDAY 04/19/22 11/29/22 History Allergies Allergy/AdvReac Type Severity Reaction Status Date / Time adhesive tape Allergy Verified 11/29/22 10:23
== END 2022-11-30 09:26 | disposition home or self-care (01) ==
LOC: OB LAC 09:26
PROVIDERS: Visit Provider Advanced Practice Midwife
DX: Z39.1 Encounter for care and examination of lactating mother (principal)
CPT/HCPCS: 99211